=== PATIENT | male | born 1950 | race Caucasian/White ===

== ENCOUNTER 2019-01-16 12:10 | Inpatient (IN) | payer OTHER ==
[2019-01-16] MEDS ORDERED: NA CHLORIDE 0.9% 250 ML ONE ×3 (13:14→21:43)
[2019-01-16] MEDS ORDERED: METOPROLOL TAR 50 MG TAB ONE (13:14)
[2019-01-16 13:27] LABS: Absolute Lymphocytes (CBC) 0.9 K/uL (0.7-4.9); Absolute Neutrophil 4.4 K/uL (1.8-8.0); Basophils % 1.1 % (0-1.3); Eosinophils % 0.5 % (0-4.4); Hematocrit 49.1 % (39.6-49.0); Lymphocytes % 13.9 % (15.3-44.8); MPV 9.8 fL (7.6-11.3); Monocytes % 15.3 % (3.3-12.3); RBC Red Blood Cell Count 4.44 M/uL (4.33-5.43)
[2019-01-16 13:35] LABS: Protime INR 1.11
[2019-01-16 13:44] LABS: BUN Blood Urea Nitrogen 17 mg/dL (7-18); Bicarbonate 37 mmol/L (21-32); Glucose Level 173 mg/dL (74-106); Magnesium 1.4 mg/dL (1.8-2.4); NT PRO-BNP 284 pg/mL (<125); Sodium Level 130 mmol/L (136-145); Troponin (Emerg Dept Use Only) < 0.02 ng/mL (0.0-0.045)
--- NOTE | 2019-01-16 13:45 | RAD REPORT ---
EXAM DESCRIPTION: CT - Head Brain Wo Cont - 01/16/2019 1:36 pm CLINICAL HISTORY: syncope vs seizure Drowsiness, headache, seizure COMPARISON: No comparisons TECHNIQUE: All CT scans are performed using dose optimization technique as appropriate and may inclu de automated exposure control or mA/KV adjustment according to patient size. FINDINGS: No intracranial hemorrhage, hydrocephalus or extra-axial fluid collection.Moderate general ized brain atrophy.No areas of brain edema or evidence of midline shift. The paranasal sinuses and mastoids are clear. The calvarium is intact. IMPRESSION: No acute intracranial abnormality. Moderate brain atrophy.
--- NOTE | 2019-01-16 13:53 | RAD REPORT ---
EXAM DESCRIPTION: RAD - Chest Single View - 01/16/2019 1:47 pm CLINICAL HISTORY: PALPITATIONS Chest pain. COMPARISON: Chest Pa And Lat (2 Views) dated 02/06/2016; CHEST PA AND LAT 2 VIEW dated 01/13/2016 FINDINGS: Portable technique limits examination quality. The lungs are grossly clear. The heart is upper limit of normal in size. No displaced fractures. IMPRESSION: No acute intrathoracic process suspected.
[2019-01-16 13:54] LABS: Potassium 2.8 mmol/L (3.5-5.1)
[2019-01-16] MEDS ORDERED: Magnesium Sulfate 2gm IVPB 2 G/50 ML BAG IV ONE (14:14)
[2019-01-16] MEDS ORDERED: KCL 20 MEQ/100 mL IVPB 20 MEQ/100 ML BAG IV ONE (14:14)
--- NOTE | 2019-01-16 14:16 | EDPHYS ---
Physician Documentation [facility] Name: Morgan Araujo Age: 68 yrs Sex: Male : 1950 Arrival Date: 01/16/2019 Time: 12:18 Bed 13 Private MD: Silverio Calvillo S ED Physician Royer Taylor HPI: 01/16 12:56 This 68 yrs old Male presents to ER via Ambulatory with complaints of rn Weakness. 12:56 This 68 yrs old Male presents to ER via Ambulatory with complaints of rn Weakness, passing out. 12:56 The patient has experienced syncope. Onset: The symptoms/episode began/occurred 2 rn month(s) ago. Duration: The patient has had multiple episodes, that last 2 minute(s). Associated injury: The patient did not suffer any apparent associated injury. Current symptoms: Currently, the patient is not experiencing any symptoms. The patient has experienced similar episodes in the past. Reports over last 2 months has been having intermittent syncope, lasts for about 1-2 minutes, daughter states appears to shake during episodes, does not wake up confused or combative, no hx of seizures, is daily drinker, and has cut down since episodes began. Had holter monitor placed by Dr. Calvillo, and told to come to ER today for admission and cardiac w/u. . 12:56 Ran out of his metoprolol this passed week.. rn Historical: - Allergies: 12:33 No Known Allergies; ss - PMHx: 12:33 Atrial Fib; CHF; Hypertension; CAD; Myocardial infarction; ss - PSHx: 12:33 Heart stents; back surg; ss - Immunization history:: Adult Immunizations up to date. - Social history:: Smoking status: Patient/guardian denies using tobacco. - Ebola Screening: : Patient denies exposure to infectious person Patient denies travel to an Ebola-affected area in the 21 days before illness onset. - Family history:: not pertinent. - Hospitalizations: : No recent hospitalization is reported. ROS: 12:56 Constitutional: Negative for fever, chills, and weight loss, Eyes: Negative for injury, rn pain, redness, and discharge, Neck: Negative for injury, pain, and swelling, Cardiovascular: Negative for chest pain, and edema, Respiratory: Negative for shortness of breath, cough, wheezing, and pleuritic chest pain, Abdomen/GI: Negative for abdominal pain, nausea, vomiting, diarrhea, and constipation, MS/Extremity: Negative for injury and deformity, Skin: Negative for injury, rash, and discoloration, Neuro: Negative for headache, numbness, tingling, and seizure. Exam: 12:56 Constitutional: This is a well developed, well nourished patient who is awake, alert, rn and in no acute distress. Head/Face: Normocephalic, atraumatic. Eyes: Pupils equal round and reactive to light, extra-ocular motions intact. Lids and lashes normal. Conjunctiva and sclera are non-icteric and not injected. Cornea within normal limits. Periorbital areas with no swelling, redness, or edema. ENT: dry MM Cardiovascular: Irregular rhythm, tachycardic, no murmur Respiratory: Lungs have equal breath sounds bilaterally, clear to auscultation. No increased work of breathing, no retractions or nasal flaring. Abdomen/GI: soft, non-tender Skin: Warm, dry MS/ Extremity: Pulses equal, no cyanosis. Neurovascular intact. Full, normal range of motion. Equal circumference. Neuro: Awake and alert, GCS 15, oriented to person, place, time, and situation. Cranial nerves II-XII grossly intact. Motor strength 5/5 in all extremities. Sensory grossly intact. Cerebellar exam normal. Vital Signs: 12:33 BP 145 / 85; Pulse 130; Resp 17; Temp 97.7(TE); Pulse Ox 98% on R/A; Weight 81.65 kg; ss Height 5 ft. 8 in. (172.72 cm); Pain 0/10; 13:30 BP 148 / 79; Pulse 96; Resp 18; Pulse Ox 100% on R/A; hj 14:19 BP 140 / 78; Pulse 85; Resp 18; Pulse Ox 97% on R/A; hj 15:52 BP 159 / 99; Pulse 84; Resp 18; Pulse Ox 100% on R/A; hj 17:25 BP 148 / 98; Pulse 85; Resp 18; Pulse Ox 100% on R/A; hj 12:33 Body Mass Index 27.37 (81.65 kg, 172.72 cm) MDM: 12:35 Patient medically screened. rn 14:04 Differential Diagnosis: cardiac arrhythmia, idiopathic syncope, seizure, vasovagal rn episode. Data reviewed: vital signs, nurses notes, lab test result(s), EKG, radiologic studies, CT scan, plain films, and as a result, I will admit patient. Counseling: I had a detailed discussion with the patient and/or guardian regarding: the historical points, exam findings, and any diagnostic results supporting the discharge/admit diagnosis, lab results, radiology results, the need for further work-up and treatment in the hospital. Response to treatment: the patient's symptoms have mildly improved after treatment, and as a result, I will admit patient. Admission orders: after a detailed discussion of the patient's condition and case, the admit orders are written by me. Special discussion:. ED course: Pt feels better with fluids, possibly cardiogenic syncope vs electrolyte disturbances from daily drinking and diuretics. Will admit to Dr. Carroll for further care and Dr. Calvillo consult.. 01/16 12:52 Order name: Basic Metabolic Panel; Complete Time: 13:56 01/16 12:52 Order name: CBC with Diff rn 01/16 12:52 Order name: Magnesium; Complete Time: 13:56 rn 01/16 12:52 Order name: NT PRO-BNP; Complete Time: 13:56 rn 01/16 12:52 Order name: PT-INR; Complete Time: 13:55 rn 01/16 12:52 Order name: Troponin (emerg Dept Use Only); Complete Time: 13:56 rn 01/16 12:52 Order name: XRAY Chest (1 view); Complete Time: 13:55 rn 01/16 12:53 Order name: CT Head Brain wo Cont; Complete Time: 13:55 rn 01/16 14:51 Order name: Carotid Artery Bilateral EDCT 01/16 14:51 Order name: Echo with Doppler EDCT 01/16 14:51 Order name: Brain Wo Cont EDCT 01/16 12:52 Order name: EKG; Complete Time: 12:53 rn 01/16 12:52 Order name: Cardiac monitoring; Complete Time: 12:57 rn 01/16 12:52 Order name: EKG - Nurse/Tech; Complete Time: 13:52 rn 01/16 12:52 Order name: IV Saline Lock; Complete Time: 13:10 rn 01/16 12:52 Order name: Labs collected and sent; Complete Time: 13:10 rn 01/16 12:52 Order name: O2 Per Protocol; Complete Time: 12:57 rn 01/16 12:52 Order name: O2 Sat Monitoring; Complete Time: 12:57 rn 01/16 14:51 Order name: CONS Physician Consult EDMS 01/16 14:51 Order name: Heart Healthy EDMS Administered Medications: 12:52 Drug: Metoprolol TARTRATE (Lopressor) 50 mg Route: PO; hj 13:50 Follow up: Response: No adverse reaction hj 13:09 Drug: NS 0.9% 250 ml Route: IV; Rate: 1 bolus; Site: right antecubital; hj 13:51 Follow up: IV Status: Completed infusion hj 13:56 Drug: Potassium Chloride 20 mEq Route: IV; Rate: 1 calculated rate; Site: right hj antecubital; 14:12 Follow up: IV Status: Completed infusion hj 13:58 Drug: Magnesium Sulfate 2 grams Route: IVPB; Infused Over: 2 hrs; Site: right hj antecubital; 14:12 Follow up: IV Status: Completed infusion Disposition: 01/16/19 14:15 Hospitalization ordered by Kimberli Carroll for Inpatient Admission. Preliminary diagnosis are Hypokalemia, Hypomagnesemia, Dehydration, Syncope and collapse, Unspecified atrial fibrillation. - Bed requested for Telemetry/MedSurg (Inpatient). - Status is Inpatient Admission. hj - Condition is Stable. - Problem is an ongoing problem. - Symptoms have improved. UTI on Admission? No Signatures: Dispatcher [employer] EDCT Royer Taylor MD MD rn Smirch, Shelby, RN RN Alex Au RN RN Vidhya Romeo RN RN df Corrections: (The following items were deleted from the chart) 13:02 12:56 Constitutional: This is a well developed, well nourished patient who is awake, rn alert, and in no acute distress. Head/Face: Normocephalic, atraumatic. Eyes: Pupils equal round and reactive to light, extra-ocular motions intact. Lids and lashes normal. Conjunctiva and sclera are non-icteric and not injected. Cornea within normal limits. Periorbital areas with no swelling, redness, or edema. ENT: dry MM Cardiovascular: Irregular rhythm, tachycardic, no murmur Respiratory: Lungs have equal breath sounds bilaterally, clear to auscultation. No increased work of breathing, no retractions or nasal flaring. Abdomen/GI: soft, non-tender MS/ Extremity: Pulses equal, no cyanosis. Neurovascular intact. Full, normal range of motion. Equal circumference. Neuro: Awake and alert, GCS 15, oriented to person, place, time, and situation. Cranial nerves II-XII grossly intact. Motor strength 5/5 in all extremities. Sensory grossly intact. Cerebellar exam normal. rn 16:38 14:15 Hospitalization Ordered by Kimberli Carroll MD for Inpatient Admission. Preliminary df diagnosis is Hypokalemia; Hypomagnesemia; Dehydration; Syncope and collapse; Unspecified atrial fibrillation. Bed requested for Telemetry/MedSurg (Inpatient). Status is Inpatient Admission. Condition is Stable. Problem is an ongoing problem. Symptoms have improved. UTI on Admission? No. rn 16:43 16:38 01/16/2019 14:15 Hospitalization Ordered by Kimberli Carroll MD for Inpatient df Admission. Preliminary diagnosis is Hypokalemia; Hypomagnesemia; Dehydration; Syncope and collapse; Unspecified atrial fibrillation. Bed requested for Telemetry/MedSurg (Inpatient). Status is Inpatient Admission. Condition is Stable. Problem is an ongoing problem. Symptoms have improved. UTI on Admission? No. df 17:47 16:43 01/16/2019 14:15 Hospitalization Ordered by Kimberli Carroll MD for Inpatient hj Admission. Preliminary diagnosis is Hypokalemia; Hypomagnesemia; Dehydration; Syncope and collapse; Unspecified atrial fibrillation. Bed requested for Telemetry/MedSurg (Inpatient). Status is Inpatient Admission. Condition is Stable. Problem is an ongoing problem. Symptoms have improved. UTI on Admission? No. df
--- NOTE | 2019-01-16 14:16 | ER ---
Nurse's Notes [facility] Name: Morgan Araujo Age: 68 yrs Sex: Male : 1950 Arrival Date: 01/16/2019 Time: 12:18 Bed 13 Private MD: Silverio Calvillo S Diagnosis: Hypokalemia;Hypomagnesemia;Dehydration;Syncope and collapse;Unspecified atrial fibrillation Presentation: 01/16 12:30 Presenting complaint: daughter reports episodes over the past 2 months that have been ss occurring daily. Episodes are described as brief convulsions followed by minutes of unresponsiveness. Transition of care: patient was not received from another setting of care. Onset of symptoms is unknown. Risk Assessment: Do you want to hurt yourself or someone else? Patient reports no desire to harm self or others. Initial Sepsis Screen: Does the patient meet any 2 criteria? No. Patient's initial sepsis screen is negative. Does the patient have a suspected source of infection? No. Patient's initial sepsis screen is negative. Care prior to arrival: None. 12:30 Method Of Arrival: Ambulatory ss 12:30 Acuity: EARNEST 3 ss Triage Assessment: 12:30 General: Appears in no apparent distress. uncomfortable, Behavior is calm, cooperative, hj appropriate for age. Pain: Denies pain. 12:30 EENT: No signs and/or symptoms were reported regarding the EENT system. Neuro: Level of hj Consciousness is awake, alert, obeys commands, Oriented to person, place, time, situation, Appropriate for age. Cardiovascular: Capillary refill < 3 seconds Patient's skin is warm and dry. Respiratory: Airway is patent Respiratory effort is even, unlabored, Respiratory pattern is regular, symmetrical. GI: No signs and/or symptoms were reported involving the gastrointestinal system. : No signs and/or symptoms were reported regarding the genitourinary system. Derm: No signs and/or symptoms reported regarding the dermatologic system. Musculoskeletal: Reports. Historical: - Allergies: 12:33 No Known Allergies; ss - PMHx: 12:33 Atrial Fib; CHF; Hypertension; CAD; Myocardial infarction; ss - PSHx: 12:33 Heart stents; back surg; ss - Immunization history:: Adult Immunizations up to date. - Social history:: Smoking status: Patient/guardian denies using tobacco. - Ebola Screening: : Patient denies exposure to infectious person Patient denies travel to an Ebola-affected area in the 21 days before illness onset. - Family history:: not pertinent. - Hospitalizations: : No recent hospitalization is reported. Screenin:30 Abuse screen: Denies threats or abuse. Denies injuries from another. Nutritional hj screening: No deficits noted. Tuberculosis screening: No symptoms or risk factors identified. Fall Risk None identified. Assessment: 12:30 Reassessment: see triage for assessment;. hj 13:30 Reassessment: Patient and/or family updated on plan of care and expected duration. Pain hj level reassessed. Patient is alert, oriented x 3, equal unlabored respirations, skin warm/dry/pink. awaiting results and POC;. 14:18 Reassessment: Patient and/or family updated on plan of care and expected duration. Pain hj level reassessed. Patient is alert, oriented x 3, equal unlabored respirations, skin warm/dry/pink. awaiting room placement;. 15:51 Reassessment: Patient and/or family updated on plan of care and expected duration. Pain hj level reassessed. Patient is alert, oriented x 3, equal unlabored respirations, skin warm/dry/pink. pt wheeled to CT;. Vital Signs: 12:33 BP 145 / 85; Pulse 130; Resp 17; Temp 97.7(TE); Pulse Ox 98% on R/A; Weight 81.65 kg; ss Height 5 ft. 8 in. (172.72 cm); Pain 0/10; 13:30 BP 148 / 79; Pulse 96; Resp 18; Pulse Ox 100% on R/A; hj 14:19 BP 140 / 78; Pulse 85; Resp 18; Pulse Ox 97% on R/A; hj 15:52 BP 159 / 99; Pulse 84; Resp 18; Pulse Ox 100% on R/A; hj 17:25 BP 148 / 98; Pulse 85; Resp 18; Pulse Ox 100% on R/A; hj 12:33 Body Mass Index 27.37 (81.65 kg, 172.72 cm) ED Course: 12:18 Patient arrived in ED. mr 12:19 Justen Hickey MD is Private Physician. mr 12:20 Silverio Calvillo MD is Private Physician. mr 12:33 Triage completed. ss 12:33 Arm band placed on right wrist. ss 12:33 Patient has correct armband on for positive identification. Placed in gown. Bed in low hj position. Call light in reach. Side rails up X 1. Adult w/ patient. 12:35 Royer Taylor MD is Attending Physician. rn 12:35 lAex Au RN is Primary Nurse. hj 13:04 EKG done, by electrical design technician. reviewed by Royer Taylor MD. at1 13:19 Inserted saline lock: 20 gauge in right forearm, using aseptic technique. pc1 13:[address] via stretcher. sj 13:31 CT completed. Patient tolerated procedure well. Patient moved back from CT. sj 13:35 Radiology exam delayed due to PT NOT IN ED ROOM ASSIGNED WHEN X RAY ATTEMPTED. sw 13:35 CT Head Brain wo Cont In Process Unspecified. EDMS 13:47 X-ray completed. Portable x-ray completed in exam room. Patient tolerated procedure mh1 well. 13:48 XRAY Chest (1 view) In Process Unspecified. EDMS 14:06 Kimberli Carroll MD is Hospitalizing Provider. rn 17:26 No provider procedures requiring assistance completed. Patient admitted, IV remains in hj place. intact. Administered Medications: 12:52 Drug: Metoprolol TARTRATE (Lopressor) 50 mg Route: PO; hj 13:50 Follow up: Response: No adverse reaction hj 13:09 Drug: NS 0.9% 250 ml Route: IV; Rate: 1 bolus; Site: right antecubital; hj 13:51 Follow up: IV Status: Completed infusion hj 13:56 Drug: Potassium Chloride 20 mEq Route: IV; Rate: 1 calculated rate; Site: right hj antecubital; 14:12 Follow up: IV Status: Completed infusion hj 13:58 Drug: Magnesium Sulfate 2 grams Route: IVPB; Infused Over: 2 hrs; Site: right hj antecubital; 14:12 Follow up: IV Status: Completed infusion hj Outcome: 14:15 Decision to Hospitalize by Provider. rn 17:26 Admitted to Tele accompanied by nurse, family with patient, via wheelchair, room 406, hj with chart, Report called to DANO Philippe 17:26 Condition: stable 17:26 Instructed on the need for admit, Demonstrated understanding of instructions. 17:47 Patient left the ED. hj Signatures: Dispatcher [facility] Martha 1 Yasmin Kyle Roman, MD MD rn Smirch, DANO Iyer RN Ashleigh Blake, projects manager EKG [facility]1 Elayne Florse Henry, RN RN Gregg Pablo pc1 Corrections: (The following items were deleted from the chart) 12:42 12:33 BP 145 / 85; Pulse 98bpm; Resp 17bpm; Pulse Ox 98% RA; Temp 97.7F Temporal; 81.65 ss kg; Height 5 ft. 8 in.; BMI: 27.3; Pain 0/10; ss
[2019-01-16] MEDS ORDERED: LORAZEPAM 1 MG TABLET PO ONE (15:16)
--- NOTE | 2019-01-16 15:16 | EKG ---
Test Date: 2019-01-16 Test Time: 12:42:58 Ambulance Paramedic: EMELY MEASUREMENT RESULTS: Intervals: Rate: 124 SD: QRSD: 86 QT: 324 QTc: 465 [place]: P: SD: QRS: 20 T: 237 INTERPRETIVE STATEMENTS: Atrial fibrillation with rapid ventricular response Septal infarct, age undetermined Possible Inferior infarct, age undetermined Marked ST abnormality, possible lateral subendocardial injury Abnormal ECG Compared to ECG 01/13/2016 12:51:43 ST (T wave) deviation now present Myocardial infarct finding still present Electronically Signed On 01-16-19 15:14:38 CDT by Allan Bowen
[2019-01-16] MEDS ORDERED: LORazepam 2 MG/ML VIAL ONE (15:49)
--- NOTE | 2019-01-16 16:28 | RAD REPORT ---
EXAM DESCRIPTION: US - CP - 01/16/2019 4:13 pm CLINICAL HISTORY: Syncope COMPARISON: None. TECHNIQUE: Real-time sonographic evaluation of both carotid systems was performed. Nevarez scale and Do ppler interrogation were performed with waveform tracing bilaterally. FINDINGS: Normal high resistance waveforms are noted in both external carotid arteries. The common c arotid arteries and internal carotid arteries show normal low resistance waveforms. Significant calcified plaquing changes are present in the right carotid bulb. Mild luminal narrowing is seen. Left bulb and left external carotid plaquing changes are present to a lesser degree. Right i nternal carotid artery peak systolic velocity was 134 cm/second. The common carotid artery velocity w as low at 37 cm/second creating a 3.6 ICA/ CCA ratio. The ratio is elevated due to the very low commo n carotid artery velocity. Left common carotid artery velocity was relatively low at 48 cm/seconds. L eft ICA peak velocity was 94 cm/second creating a 1.9 ICA/ CCA ratio. Antegrade flow seen in both vertebral arteries. Velocity values and ratios were recorded and are retained in the patient's imaging records. IMPRESSION: Patient has abnormal velocity and abnormal ratio values with visual inspection showing d isease of less significance. The low common carotid artery velocity values could indicate proximal common carotid stenosis not vis ualized on this examination. Cervical vasculature CT angiography or MR angiography may be helpful for further characterization.
--- NOTE | 2019-01-16 16:29 | P.HP ---
Certification for Inpatient Patient admitted to: Observation With expected LOS: <2 Midnights Patient will require the following post-hospital care: None Practitioner: I am a practitioner with admitting privileges, knowledge of patient current condition, hospital course, and medical plan of care. Services: Services provided to patient in accordance with Admission requirements found in Title 42 Section 412.3 of the Code of Federal Regulations Patient History Date of Service: 01/16/19 Primary Care Provider: Dr Calvillo - PCP and cardiology Reason for admission: Syncope History of Present Illness: 67 y/o M with pmhx of afib, CHF, CAD and Alcohol abuse who presents to the ED after having syncopal episode at the house. Pt has been having this episodes for over a month now and has been seen bu cardiology recently who placed pt on Holter monitor. Pt however only wore it for 1 hrs and then threw it away as it was making noise. This was last week. Pt then had another syncopal episode and was told to come to ER for further workup. Pt does drink alcohol everynight. Allergies No Known Allergies Allergy (Verified 06/04/17 09:58) Home Medications: Aspirin/Calcium Carbonate/Mag [Aspirin Buffered 325 mg Tab] 325 mg PO DAILY 05/23 Atorvastatin Calcium [Lipitor] 80 mg PO DAILY 01/13/16 Nitroglycerin [Nitrostat] 0.4 mg SL SEECOM PRN 01/13/16 Omeprazole 40 mg PO DAILY 01/13/16 Amlodipine [Norvasc*] 5 mg PO DAILY #30 tab 01/16/16 Apixaban [Eliquis *] 5 mg PO BID #60 tablet 01/16/16 Fluticasone [Flonase 50MCG Nasal [place]*] 2 sprays SANIYA DAILY #01 btl 01/16/16 Metoprolol Succinate [Toprol Xl*] 200 mg PO DAILY #30 tab 01/16/16 Thiamine HCl 100 mg PO DAILY #100 tablet 01/16/16 chlordiazePOXIDE HCl [Librium*] 10 mg PO TID #40 cap 01/16/16 - Past Medical/Surgical History Diabetic: No -: heart attack -: AFIB -: 2 stents placed -: hernia repair -: knee surgery -: back surgery - Family History Mother -: Cancer Father -: Cancer - Social History Smoking Status: Unknown if ever smoked Counseled patient to stop smoking for: more than 10 minutes Smoking therapy provided: Yes Patient receptive to therapy: No Alcohol use: Yes CD- Drugs: Yes Caffeine use: No Place of Residence: Home Review of Systems 10-point ROS is otherwise unremarkable Physical Examination - Physical Exam General: Alert, In no apparent distress HEENT: Atraumatic, PERRLA, Mucous membr. moist/pink, EOMI, Sclerae nonicteric Neck: Supple, 2+ carotid pulse no bruit, No LAD, Without JVD or thyroid abnormality Respiratory: Clear to auscultation bilaterally, Normal air movement Cardiovascular: Regular rate/rhythm, Normal S1 S2 Gastrointestinal: Normal bowel sounds, No tenderness Musculoskeletal: No tenderness Integumentary: No rashes Neurological: Normal speech, Normal tone Lymphatics: No axilla or inguinal lymphadenopathy - Studies Laboratory Data (last 24 hrs) 01/16/19 13:05: PT 13.0 H, INR 1.11 01/16/19 13:05: WBC 6.4, Hgb 17.1, Hct 49.1 H, Plt Count 210 01/16/19 13:05: Sodium 130 L, Potassium 2.8 L*, BUN 17, Creatinine 1.09, Glucose 173 H, Magnesium 1.4 L* Assessment and Plan - Problems (Diagnosis) (1) Syncopal episodes Current Visit: Yes Status: Acute Plan: Syncopal Episodes most likely 2.2 to Electrolyte abnormality vs cardiac vs alcohol abuse -Head CT in the ED negative for Acute abnormality -Will order MRI, ECHO, Carotid Doppler -Will Consult Cardiology for further workup -Will get PT consult -Will monitor closely Qualifiers: Syncope type: unspecified Qualified Code(s): R55 - Syncope and collapse (2) Afib Current Visit: Yes Status: Chronic Plan: Chronic Afib -Will restart on Home medication Qualifiers: Atrial fibrillation type: chronic Qualified Code(s): I48.2 - Chronic atrial fibrillation (3) CHF (congestive heart failure) Current Visit: Yes Status: Chronic Plan: Diastolic CHF -ECHO in 2016 with diastolic Dysfunction with EF of 63% -Will repeat ECHO at this time Qualifiers: Heart failure type: diastolic Heart failure chronicity: chronic Qualified Code(s): I50.32 - Chronic diastolic (congestive) heart failure (4) CAD (coronary artery disease) Current Visit: Yes Status: Chronic Qualifiers: Coronary Disease-Associated Artery/Lesion type: [place] artery [place] vs. transplanted heart: [place] heart Associated angina: without angina Qualified Code(s): I25.10 - Atherosclerotic heart disease of [place] coronary artery without angina pectoris (5) Alcohol abuse Current Visit: Yes Status: Chronic Plan: Will place on Alcohol CIWA protocol (6) Electrolyte abnormality Current Visit: Yes Status: Acute Plan: Hypomg, Hypo K and ca -Will replace -Most likely 2.2 to Alcohol abuse Discharge Plan: Home Plan to discharge in: 72 Hours - Advance Directives Does patient have a Living Will: No Does patient have a Durable POA for Healthcare: No - Code Status/Comfort Care Code Status Assessed: Yes Critical Care: No
[2019-01-16] MEDS ORDERED: LORazepam 2 MG/ML VIAL IV ONE (16:34)
--- NOTE | 2019-01-16 17:24 | RAD REPORT ---
EXAM DESCRIPTION: MRI - Brain Wo Cont - 01/16/2019 5:11 pm CLINICAL HISTORY: Syncope seizure like activity COMPARISON: CT head same date TECHNIQUE: Sagittal T1-weighted images were obtained along with axial PD, heavily T2-weighted and T2 -FLAIR images. Axial DWI and ADC mapping sequences were also obtained along with coronal heavily T2-w eighted images. FINDINGS: No intracranial hemorrhage, mass or acute infarction. There is no edema or shift of midlin e structures. Mild atrophy and minimal chronic ischemic changes are present. Ventricles are in propor tion to any volume loss. [place]-matter/white matter junction is preserved. Signal voids are seen as a n ormal finding in the major intracranial vessels. No globe or orbital content abnormality. No sella mass and no tonsillar ectopia. Mastoid air cells and paranasal sinuses are clear. IMPRESSION: Negative non-contrast MRI of the Brain for acute finding Mild atrophy and minimal chronic ischemic change.
[2019-01-16 18:41] VITALS: BMI 27.3
[2019-01-16 19:44] LABS: Urine Appearance CLEAR; Urine Bilirubin NEGATIVE (NEG); Urine Blood NEGATIVE (NEG); Urine Color DK YELLOW; Urine Glucose NEGATIVE (NEG); Urine Protein NEGATIVE (NEG); Urine Specific Gravity 1.015 (1.005-1.030); Urine pH 7.5 (5.0-7.0)
[2019-01-16] MEDS ORDERED: KCL 20 MEQ/100 mL IVPB 20 MEQ/100 ML BAG IV SCH (20:00)
[2019-01-16 20:13] LABS: Blood Morphology Comment NOTED (NOT SEEN); Platelet Estimate ADEQ; Urine White Blood Cell Casts OK
[2019-01-16 20:14] LABS: Macrocytosis 1+
[2019-01-16 20:58] LABS: Urine Bacteria NONE SEEN /HPF (NONE SEEN); Urine RBC <5 /HPF (NONE SEEN)
[2019-01-16 20:59] LABS: Urine Culture Reflex Order NOT NEEDED; Urine Mucus 1+ /HPF (NONE SEEN)
[2019-01-16] MEDS: METOPROLOL TAR 50 MG TAB PO SCH (21:37)
[2019-01-16] MEDS: TEMAZEPAM 15 MG CAP PO PRN (21:37)
[2019-01-16] MEDS: chlordiazePOXIDE HCl 5 MG CAP PO SCH (21:37)
[2019-01-16] MEDS: ENOXAPARIN 80 MG/0.8 ML SQ SCH (21:38)
[2019-01-17] MEDS: chlordiazePOXIDE HCl 5 MG CAP PO SCH ×5 (00:25→23:40)
--- NOTE | 2019-01-17 02:19 | CON ---
History Of Present Illness: Mr. Araujo has been having syncopal spells and the family came to the [facility] with a lot of encouragement or something stronger than that by his family to get him here. Hi s first syncopal spell was something like 2 months ago. He has had numerous, too many to count. He saw Dr. Calvillo. Dr. Calvillo put a monitor on him. The patient was frustrated, could not make it wo rk, cried, pulled it often, and apparently threw it in the trash. The patient's syncopal spells all occur when he is standing, none have occurred when he is sitting. He has not had any tongue biting o r bladder or bowel incontinence. There is no rigidity. Usually, he wakes up within a minute. His l ongest spell was about 5 minutes. When he awakens, he is not confused or disoriented. He has not vera d any traumatic brain injury. He is a very heavy alcohol user, although he only admits to drinking 3 drinks per day. We do not know what his outpatient medications are. Since he has been here in the hospital, the carotid ultrasounds does not reveal any significant stenosis, although they were concer opal that the proximal common carotid stenosis close to the aorta might be involved, but that is a joaquin ce that was not imaged. A CAT scan of his head revealed no intracranial abnormality, although the br ain atrophy was commented upon. His electrocardiogram shows atrial fib, rapid ventricular response, septal infarct, possible inferior infarct, and marked ST abnormality. Social History: He is an alcohol and tobacco user. Past Medical History: Never had myocardial infarction or stroke or diabetes. Physical Examination: General: He is alert, oriented, and pleasant. He is not in distress. He is 5 feet and 8 inches and 81 kg, mildly overweight. Vital Signs: Blood pressure 145/80, heart rate 130, irregularly irregular. Lungs: Clear. Extremities: Reveal discoloration, trace edema. Distal pulses palpable but diminished. Impression: Mr. Araujo has atrial fib. He may be syncopal because his atrial fib goes so rapidly. He may be syncopal because there are dramatic pauses, I am not sure. Most likely his monitor was goi ng up and alarming him because he had an arrhythmia that he did not try to get treated. When he saw Dr. Calvillo a week ago, Dr. Calvillo recommended he be placed in the hospital and he refused and now joseph valdes is here, so what we need to do is get his heart rate under control and consider long-term anticoagu lation for him. At this point, I would not be willing to do a cardioversion or give him an antiarrhy thmic drug. We should just slow his heart rate and anticoagulate him here in the hospital. JAZMIN Voice ID: [id number] Report ID: [id number]
[2019-01-17 04:17] LABS: Absolute Lymphocytes (CBC) 1.5 K/uL (0.7-4.9); Absolute Monocytes 1.3 K/uL (0.1-1.3); Absolute Neutrophil 4.6 K/uL (1.8-8.0); Basophils % 0.8 % (0-1.3); Eosinophils % 1.9 % (0-4.4); Hematocrit 44.4 % (39.6-49.0); Lymphocytes % 19.8 % (15.3-44.8); MPV 9.4 fL (7.6-11.3); Monocytes % 17.1 % (3.3-12.3); RBC Red Blood Cell Count 3.97 M/uL (4.33-5.43)
[2019-01-17 05:13] LABS: Albumin 3.4 g/dL (3.4-5.0); Folic Acid, (Folate) 3.5 ng/mL (3.1-17.5); Magnesium 1.8 mg/dL (1.8-2.4); Phosphorus 2.6 mg/dL (2.5-4.9); Potassium 3.3 mmol/L (3.5-5.1); Protein, Total 7.4 g/dL (6.4-8.2)
[2019-01-17] MEDS ORDERED: MAGNESIUM SULFATE 1 gm IVPB 1 GM/100 ML BAG IV ONE (05:25)
[2019-01-17] MEDS ORDERED: POTASSIUM 25 MEQ EFFERV TAB PO ONE (05:25)
[2019-01-17] MEDS: FOLIC ACID 1 MG, MULTIVITAMINS INJ 10 ML, THIAMINE HCL 100 MG in NA CHLORIDE 0.9% 1,000 ML IV SCH (08:16)
[2019-01-17] MEDS: ENOXAPARIN 80 MG/0.8 ML SQ SCH ×2 (08:16→20:44)
[2019-01-17] MEDS: METOPROLOL TAR 50 MG TAB PO SCH ×2 (08:20→20:43)
[2019-01-17] MEDS ORDERED: CLOPIDOGREL 75 MG TABLET PO SCH (09:00)
[2019-01-17] MEDS ORDERED: TORSEMIDE 20 MG TAB PO SCH (09:00)
[2019-01-17] MEDS ORDERED: HOME MED 1 EA UNK (Metoprolol Succinate [Toprol Xl] 200 MG) PO SCH (09:00)
[2019-01-17] MEDS ORDERED: LORazepam 2 MG/ML VIAL IV ONE (12:00)
[2019-01-17] MEDS ORDERED: MAGNESIUM HYDROXIDE 8% 30 ML PO PRN (13:12)
--- NOTE | 2019-01-17 14:16 | RAD REPORT ---
EXAM DESCRIPTION: MRI - MRA Neck W/Wo Cont - 01/17/2019 1:34 pm CLINICAL HISTORY: Syncope, carotid stenosis COMPARISON: None. TECHNIQUE: Axial and coronal 3D [id number] image acquisition was performed. 3D rotational images were generated with source and reconstruction images reviewed. Horizontal and vertical axis rotation al views generated using MIP protocol. A 16 milliliter MultiHance contrast volume was utilized. FINDINGS: Aortic arch is 3 vessel configuration. No innominate artery or left common carotid artery origins stenosis identified. Origin of the left subclavian artery is obscured from view. Vertebral ar chalo origins show no stenosis. No stenosis or dissection of the left common carotid artery or right c ommon carotid artery. Short-segment stenosis of the left external carotid artery is seen less than 50 %. External stenoses are not clinically significant. Patient does have approximately 50-60% short-segment stenosis at the right bulb ICA junction. More di stally there is no carotid stenosis or dissection. Left vertebral artery is slightly dominant. No dissection, stenosis or acute vertebral artery finding . IMPRESSION: Approximately 50-60% stenosis at the right bulb ICA junction. No other significant findi ng in the right-sided carotid vasculature. No left carotid stenosis or significant finding. The abnormal common carotid velocities on the recent ultrasound are likely technical issues.
[2019-01-17 15:36] LABS: Potassium 3.6 mmol/L (3.5-5.1)
--- NOTE | 2019-01-17 16:58 | P.PN ---
Subjective Date of Service: 01/17/19 Primary Care Provider: Dr Calvillo - PCP and cardiology Chief Complaint: Syncope Pt seen and examined bedside. Chart Reviewed. Case DW with cardiology and Urology. Pt overnight had some Hematuria. No other complains to offer at this time. Review of Systems 10-point ROS is otherwise unremarkable Physical Examination - Vital Signs Temperature: 97.6 F Blood Pressure: 130/89 Pulse: 90 Respirations: 18 Pulse Ox (%): 98 - Physical Exam General: Alert, In no apparent distress HEENT: Atraumatic, PERRLA, EOMI Neck: Supple, JVD not distended Respiratory: Clear to auscultation bilaterally, Normal air movement Cardiovascular: Regular rate/rhythm, Normal S1 S2 Gastrointestinal: Normal bowel sounds, No tenderness Musculoskeletal: No tenderness Integumentary: No rashes Neurological: Normal speech, Normal tone, Normal affect Lymphatics: No axilla or inguinal lymphadenopathy - Studies Laboratory Data (last 24 hrs) 01/16/19 13:05: WBC 6.4, Hgb 17.1, Hct 49.1 H, Plt Count 210 Medications List Reviewed: Yes Assessment And Plan - Current Problems (Diagnosis) (1) Hematuria Current Visit: Yes Status: Acute Plan: Most Likely 2.2 to Anticoagulation vs DAVID -UA pending at this time -Urology consulted. Appreciated Reccs -Reccs CBI Qualifiers: Hematuria type: gross Qualified Code(s): R31.0 - Gross hematuria (2) Syncopal episodes Current Visit: Yes Status: Acute Plan: Syncopal Episodes most likely 2.2 to Electrolyte abnormality vs cardiac vs alcohol abuse -Head CT in the ED negative for Acute abnormality -MRI and Carotid Doppler Negative for CVA -ECHO pending -Cardiology Consulted. Appreciated Reccs -Working with PT at this time. Qualifiers: Syncope type: unspecified Qualified Code(s): R55 - Syncope and collapse (3) Afib Current Visit: Yes Status: Chronic Plan: Aflutter 2.2 to Alcohol abuse vs Electrolyte Abnormality -Started on BB (Metoprolol 50mg BID) -Started on WB lovenox -Hold other anticoagulation due to Hematuria at this time Qualifiers: Atrial fibrillation type: chronic Qualified Code(s): I48.2 - Chronic atrial fibrillation (4) CHF (congestive heart failure) Current Visit: Yes Status: Chronic Plan: Diastolic CHF -ECHO in 2016 with diastolic Dysfunction with EF of 63% -ECHO now pending Qualifiers: Heart failure type: diastolic Heart failure chronicity: chronic Qualified Code(s): I50.32 - Chronic diastolic (congestive) heart failure (5) CAD (coronary artery disease) Current Visit: Yes Status: Chronic Qualifiers: Coronary Disease-Associated Artery/Lesion type: [place] artery [place] vs. transplanted heart: [place] heart Associated angina: without angina Qualified Code(s): I25.10 - Atherosclerotic heart disease of [place] coronary artery without angina pectoris (6) Alcohol abuse Current Visit: Yes Status: Chronic Plan: On CIWA protocol -librium PRN -Banana Bag (7) Electrolyte abnormality Current Visit: Yes Status: Acute Plan: Hypomg, Hypo K and ca -Will replace -Most likely 2.2 to Alcohol abuse Discharge Plan: Other Plan to discharge in: Greater than 2 days - Code Status/Comfort Care Code Status Assessed: Yes Critical Care: No
[2019-01-17] MEDS ORDERED: POTASSIUM CL SA 10 MEQ TAB PO ONE (17:00)
--- NOTE | 2019-01-17 17:25 | ECHO ---
HEIGHT: 5 ft 8 in WEIGHT: 180 lb 0 oz DATE OF STUDY: 01/17/[address]: Kimberli Carroll MD 2-DIMENSIONAL: YES M.MODE: YES DOPPLER: YES COLOR FLOW: YES TDS: PORTABLE: DEFINITY: BUBBLE STUDY: DIAGNOSIS: SYNCOPE CARDIAC HISTORY: CATHERIZATION: YES SURGERY: NO PROSTHETIC VALVE: NO PACEMAKER: NO MEASUREMENTS (cm) DIASTOLIC (NORMALS) SYSTOLIC (NORMALS) IVSd 1.2 (0.6-1.2) LA Diam 4.4 (1.9-4.0) LVEF 68% LVIDd 3.8 (3.5-5.7) LVIDs 2.4 (2.0-3.5) %FS 38% LVPWd 1.2 (0.6-1.2) Ao Diam 3.0 (2.0-3.7) 2 DIMENSIONAL ASSESSMENT: RIGHT ATRIUM: NORMAL LEFT ATRIUM: DILATED RIGHT VENTRICLE: NORMAL LEFT VENTRICLE: NORMAL TRICUSPID VALVE: NORMAL MITRAL VALVE: NORMAL PULMONIC VALVE: NORMAL AORTIC VALVE: NORMAL PERICARDIAL EFFUSION: NONE AORTIC ROOT: NORMAL LEFT VENTRICULAR WALL MOTION: NORMAL DOPPLER/COLOR FLOW: NORMAL COMMENTS: TECHNICALLY DIFFICULT STUDY. DILATED LEFT ATRIUM. NORMAL LEFT VENTRICULAR EJECTION FRACTION. TECHNOLOGIST: KATEY DE LA FUENTE
[2019-01-17 18:59] LABS: Urine Appearance CLEAR; Urine Bilirubin NEGATIVE (NEG); Urine Blood NEGATIVE (NEG); Urine Color YELLOW; Urine Glucose NEGATIVE (NEG); Urine Protein NEGATIVE (NEG); Urine Specific Gravity 1.015 (1.005-1.030)
--- NOTE | 2019-01-17 19:11 | CON ---
History Of Present Illness: A 68-year-old alcoholic abuser man who drinks himself to sleep every night. Daughter says he has been drinking since he was in his 20s. The daughter does not know how many drinks he takes, but she says a lot. He has a past medical history of atrial fibrillation, CHF, coronary artery disease, and alcoholic abuse, who presented to the ER after having a syncopal episode at the house. He has been having episodes for over a month. He came in and had Lovenox added to his Plavix and then had some initial gross hematuria. The Lovenox and Plavix were held. The urine cleared up. He does have some lower urinary tract symptomatology with nocturia, depends on how many alcohol drinks he takes that night, along with some frequency during the day and decrease in force of stream. He does not remember the last time he had a PSA. He believes it was a year ago, but the daughter does not really believe he has that good a memory to remember, so I ordered 1 today. I believe since the Lovenox, which was for prophylaxis, we can go ahead and start him back on his Plavix, that should anticoagulate him, and we will see how he does with that. If he definitely needs the anticoagulation, then he may need a 3-way Ferrell catheter placed for irrigation. Most of the bleeding sounds like it is coming from the prostatic area. Allergies: NO KNOWN DRUG ALLERGIES. Home Medications: Aspirin, Plavix, atorvastatin, nitroglycerin, omeprazole, Norvasc, Eliquis, Flonase, metoprolol, thiamine, Librium. Past Medical History: No diabetes. Positive for heart attack. Positive for atrial fibrillation. Two stents placed. Knee surgery. Back surgery. Family History: Mother had cancer. Father had cancer. Social History: Smoking status: Does not smoke. He does drink a lot. Caffeine use denied. Resides at home. Review of Systems: A 10-point review of systems otherwise unremarkable. Physical Examination: General: The patient was afebrile. Stable. No acute distress. Has very long hair. He is alert and oriented, in no apparent distress. Daughter is present in the room. Vital Signs: Temperature 97.8, 82, 16, 105/71. Respiratory: Clear to auscultation bilaterally. Cardiovascular: S1, S2. Gastrointestinal: Normal bowel sounds. No tenderness. Rectal: The prostate was benign-feeling, 30-40 g prostate. : Testicles descended, nontender. Phallus normal. No lesions. Skin: No rashes. Neurologic: Normal speech, normal tone. Lymphatics: No lymphadenopathy. Laboratory Data: Studies done PT/INR normal. White blood cell count, WBC 6.4, H and H of 17 and 49, platelets 210. Electrolytes sodium 130. Potassium was 2.8, subsequently being corrected to 3.3. BUN 17, creatinine 1.09, glucose 173 , magnesium 1.4. Assessment: 1. Patient with syncopal episodes, unclear what the cause is. He is getting MRI, echo, and other studies done. He did have a brain MRI showing negative noncontrasted MRI of the brain for any acute finding. Also had a carotid artery ultrasound that showed abnormal velocities and abnormal ratio values with visual inspection showing no etiology. Values could indicate proximal common carotid artery stenosis that was not visualized in the exam, and that they recommend CT angiography or MRI angiography for further characterization. He is pending a neck MRA today. 2. As far as the hematuria is concerned, most likely it is prostatic, possible benign prostatic hyperplasia. We will resume his p.o. anticoagulation. Hold the Lovenox. Check a prostate specific antigen. 3. Atrial fibrillation. Restarted on anticoagulation. 4. Congestive heart failure with an ejection fraction of 63%. 5. Coronary artery disease, stable. 6. Alcohol abuse. The patient needs to work on this area. He is getting multivitamins and thiamine currently. Electrolyte abnormalities have been corrected. 7. PSA and Urinalysis are still pending. WILL/GRIFFIN Voice ID: [id number] Report ID: [id number] LISET
[2019-01-17 19:27] LABS: Urine Bacteria NONE SEEN /HPF (NONE SEEN); Urine Culture Reflex Order NOT NEEDED; Urine RBC <5 /HPF (NONE SEEN)
[2019-01-17] MEDS: TEMAZEPAM 15 MG CAP PO PRN (20:41)
[2019-01-17] MEDS ORDERED: chlordiazePOXIDE HCl 5 MG CAP PO SCH ×2 (21:04→21:13)
[2019-01-18 04:16] LABS: Absolute Lymphocytes (CBC) 1.6 K/uL (0.7-4.9); Absolute Monocytes 1.2 K/uL (0.1-1.3); Absolute Neutrophil 4.2 K/uL (1.8-8.0); Basophils % 1.3 % (0-1.3); Eosinophils % 2.4 % (0-4.4); Hematocrit 43.1 % (39.6-49.0); Lymphocytes % 21.7 % (15.3-44.8); MPV 9.7 fL (7.6-11.3); Monocytes % 16.9 % (3.3-12.3); RBC Red Blood Cell Count 3.87 M/uL (4.33-5.43)
[2019-01-18 04:32] LABS: Bilirubin Total 1.3 mg/dL (0.2-1.0); Magnesium 1.9 mg/dL (1.8-2.4); Phosphorus 2.4 mg/dL (2.5-4.9); Protein, Total 6.6 g/dL (6.4-8.2)
[2019-01-18] MEDS ORDERED: POTASSIUM CL SA 10 MEQ TAB PO ONE ×3 (04:37→21:00)
[2019-01-18] MEDS: chlordiazePOXIDE HCl 5 MG CAP PO SCH ×3 (05:18→17:43)
[2019-01-18] MEDS: POTASS/SODIUM PHOSPHATE 1 PKT POWD.PACK PO SCH ×3 (05:18→08:30)
[2019-01-18] MEDS ORDERED: CLOPIDOGREL 75 MG TABLET PO SCH (09:00)
[2019-01-18] MEDS: ENOXAPARIN 80 MG/0.8 ML SQ SCH (09:00)
[2019-01-18] MEDS: FOLIC ACID 1 MG, MULTIVITAMINS INJ 10 ML, THIAMINE HCL 100 MG in NA CHLORIDE 0.9% 1,000 ML IV SCH (09:33)
[2019-01-18] MEDS: METOPROLOL TAR 50 MG TAB PO SCH ×2 (09:34→20:23)
--- NOTE | 2019-01-18 12:02 | PN ---
Mr. Araujo's blood pressure and heart rate are well controlled on his present medications. Since he has had correction of his severe and numerous metabolic abnormalities, he has had no further symptoms . In my opinion, his symptoms were all due to severe alcohol abuse and very poor nutrition. Mr. Tracy parrish seemed to understand this when I told it to him; he did not disagree, but he said he was not litzy g to stop drinking. He could not wait to be discharged and start drinking again. He was offered joaquin cement in a rehab facility to help him with alcohol abuse, and he refused. So at this point, I do no t have anything to add to the heart failure treatment. I would not give anticoagulants. I think it would probably end up in a very poor outcome with his poor compliance. We can try and slow his heart rate with beta-blockers, and give him the best information possible. MELANIE/GRIFFIN Voice ID: [id number] Report ID: [id number]
--- NOTE | 2019-01-18 14:57 | PN ---
Subjective: The patient is asking how long his catheter is going to stay in, likely catheter 3-way o r regular catheter has been placed. It is not hematuric but is draining clear urine. They going to start Plavix and aspirin today and see how he does. If it is cleared, we could remove the catheter a nd see how he does. Objective: Vital Signs: Temperature 97.8 and 93 pulse, BP 106/69, room air 95%. Laboratory Studies: Shows white count normal 7.3, H and H 15 and 43, platelet count 181. Chemistry shows sodium slightly low 133, potassium low at 3.0, chloride 93, carbon dioxide 35 and GFR 87, this is up from 66. Assessment: For anticoagulation, Ferrell catheter in place. So the patient can be anticoagulated. We will continue to observe the patient and see how he does. Syncopal episode hematuria, atrial fibrillation, congestive heart failure, coronary artery disease, a lcohol abuse. WILL/GRIFFIN Voice ID: [id number] Report ID: [id number]
--- NOTE | 2019-01-18 15:03 | P.PN ---
Subjective Date of Service: 01/18/19 Primary Care Provider: Dr Calvillo - PCP and cardiology Chief Complaint: Syncope Pt seen and examined bedside. Chart Reviewed. Case DW with cardiology and Urology. This AM pt is s.p CBI tunneled cather placement. Still c/o of hematuria Review of Systems 10-point ROS is otherwise unremarkable Physical Examination - Vital Signs Temperature: 97.7 F Blood Pressure: 106/69 Pulse: 96 Respirations: 18 Pulse Ox (%): 99 - Physical Exam General: Alert, In no apparent distress HEENT: Atraumatic, PERRLA, EOMI Neck: Supple, JVD not distended Respiratory: Clear to auscultation bilaterally, Normal air movement Cardiovascular: Regular rate/rhythm, Normal S1 S2 Gastrointestinal: Normal bowel sounds, No tenderness Musculoskeletal: No tenderness Integumentary: No rashes Neurological: Normal speech, Normal tone, Normal affect Lymphatics: No axilla or inguinal lymphadenopathy - Studies Medications List Reviewed: Yes Assessment And Plan - Current Problems (Diagnosis) (1) Hematuria Current Visit: Yes Status: Acute Plan: Most Likely 2.2 to Anticoagulation -UA negative for UTI -Urology consulted. Appreciated Reccs -Pt to continue on CBI and IV fluids Qualifiers: Hematuria type: gross Qualified Code(s): R31.0 - Gross hematuria (2) Syncopal episodes Current Visit: Yes Status: Acute Plan: Syncopal Episodes most likely 2.2 to Electrolyte abnormality vs cardiac vs alcohol abuse -Head CT in the ED negative for Acute abnormality -MRI and Carotid Doppler Negative for CVA -ECHO WNL -Cardiology Consulted. Appreciated Reccs -Working with PT at this time. Qualifiers: Syncope type: unspecified Qualified Code(s): R55 - Syncope and collapse (3) Afib Current Visit: Yes Status: Chronic Plan: Aflutter 2.2 to Alcohol abuse vs Electrolyte Abnormality -Started on BB (Metoprolol 50mg BID) -Switched to ASA and plavix now Qualifiers: Atrial fibrillation type: chronic Qualified Code(s): I48.2 - Chronic atrial fibrillation (4) CHF (congestive heart failure) Current Visit: Yes Status: Chronic Plan: Diastolic CHF -ECHO with diastolic Dysfunction now Qualifiers: Heart failure type: diastolic Heart failure chronicity: chronic Qualified Code(s): I50.32 - Chronic diastolic (congestive) heart failure (5) CAD (coronary artery disease) Current Visit: Yes Status: Chronic Qualifiers: Coronary Disease-Associated Artery/Lesion type: [place] artery [place] vs. transplanted heart: [place] heart Associated angina: without angina Qualified Code(s): I25.10 - Atherosclerotic heart disease of [place] coronary artery without angina pectoris (6) Alcohol abuse Current Visit: Yes Status: Chronic Plan: On CIWA protocol -librium PRN -Banana Bag (7) Electrolyte abnormality Current Visit: Yes Status: Acute Plan: Hypomg, Hypo K and ca -Will replace -Most likely 2.2 to Alcohol abuse Discharge Plan: Home Plan to discharge in: 48 Hours - Code Status/Comfort Care Code Status Assessed: Yes Critical Care: No
[2019-01-18] MEDS: TRAMADOL HCL 50 MG TAB PO PRN (15:54)
[2019-01-18] MEDS ORDERED: LORazepam 2 MG/ML VIAL IV ONE (16:30)
[2019-01-18] MEDS: TEMAZEPAM 15 MG CAP PO PRN (20:23)
[2019-01-19 04:19] LABS: Absolute Lymphocytes (CBC) 1.6 K/uL (0.7-4.9); Absolute Neutrophil 6.1 K/uL (1.8-8.0); Eosinophils % 1.7 % (0-4.4); Hematocrit 43.9 % (39.6-49.0); Lymphocytes % 17.7 % (15.3-44.8); MPV 10.1 fL (7.6-11.3); Monocytes % 11.6 % (3.3-12.3); RBC Red Blood Cell Count 3.88 M/uL (4.33-5.43)
[2019-01-19 04:45] LABS: Albumin 3.1 g/dL (3.4-5.0); Bilirubin Total 1.3 mg/dL (0.2-1.0); Magnesium 1.8 mg/dL (1.8-2.4); Phosphorus 2.2 mg/dL (2.5-4.9); Potassium 3.9 mmol/L (3.5-5.1); Protein, Total 6.9 g/dL (6.4-8.2)
[2019-01-19] MEDS ORDERED: MAGNESIUM SULFATE 1 gm IVPB 1 GM/100 ML BAG IV ONE (04:57)
[2019-01-19] MEDS ORDERED: POTASSIUM CL SA 10 MEQ TAB PO ONE (04:58)
[2019-01-19] MEDS: POTASS/SODIUM PHOSPHATE 1 PKT POWD.PACK PO SCH ×3 (05:25→11:21)
[2019-01-19] MEDS: chlordiazePOXIDE HCl 5 MG CAP PO SCH ×3 (05:26→11:52)
[2019-01-19] MEDS: TRAMADOL HCL 50 MG TAB PO PRN (05:26)
[2019-01-19] MEDS ORDERED: ASPIRIN EC 81 MG TAB PO SCH (09:00)
[2019-01-19] MEDS ORDERED: TAMSULOSIN 0.4 MG SR CAP PO SCH (09:00)
[2019-01-19] MEDS ORDERED: CLOPIDOGREL 75 MG TABLET PO SCH (09:00)
--- NOTE | 2019-01-19 09:01 | PN ---
Subjective: The patient is resting. He has been started on his blood thinners. He is on aspirin an d Plavix. No significant signs of bleeding with the Ferrell catheter in place. I would leave Ferrell ca theter. Assessment: Hematuria after anticoagulation. I would recommend leaving the Ferrell catheter for a wee k, and then remove in a week. We should also go ahead and start him on Flomax, which may help his vo iding symptoms. PB/MODL Voice ID: [id number] Report ID: [id number]
[2019-01-19] MEDS: METOPROLOL TAR 50 MG TAB PO SCH (10:00)
[2019-01-19] MEDS: FOLIC ACID 1 MG, MULTIVITAMINS INJ 10 ML, THIAMINE HCL 100 MG in NA CHLORIDE 0.9% 1,000 ML IV SCH (10:01)
[2019-01-19 12:20] VITALS: O2SAT 98
[2019-01-19 12:57] VITALS: BP 135/70; TEMP 97.4
--- NOTE | 2019-01-19 16:00 | P.DS ---
Admission Date: 01/18/19 Discharge Date: 01/19/19 Primary Care Provider: Dr Calvillo - PCP and cardiology Disposition: ROUTINE DISCHARGE Discharge Condition: GOOD Reason for Admission: Syncope Consultations: Urology Cardiology - Problems (1) Hematuria Status: Acute Qualifiers: Hematuria type: gross Qualified Code(s): R31.0 - Gross hematuria (2) Syncopal episodes Status: Acute Qualifiers: Syncope type: unspecified Qualified Code(s): R55 - Syncope and collapse (3) Afib Status: Chronic Qualifiers: Atrial fibrillation type: chronic Qualified Code(s): I48.2 - Chronic atrial fibrillation (4) CHF (congestive heart failure) Status: Chronic Qualifiers: Heart failure type: diastolic Heart failure chronicity: chronic Qualified Code(s): I50.32 - Chronic diastolic (congestive) heart failure (5) CAD (coronary artery disease) Status: Chronic Qualifiers: Coronary Disease-Associated Artery/Lesion type: [place] artery [place] vs. transplanted heart: [place] heart Associated angina: without angina Qualified Code(s): I25.10 - Atherosclerotic heart disease of [place] coronary artery without angina pectoris (6) Alcohol abuse Status: Chronic (7) Electrolyte abnormality Status: Acute Brief History of Present Illness: 67 y/o M with pmhx of afib, CHF, CAD and Alcohol abuse who presents to the ED after having syncopal episode at the house. Pt has been having this episodes for over a month now and has been seen bu cardiology recently who placed pt on Holter monitor. Pt however only wore it for 1 hrs and then threw it away as it was making noise. This was last week. Pt then had another syncopal episode and was told to come to ER for further workup. Pt does drink alcohol everynight. Hospital Course: Overall during the hospital stay patient remained stable Patient was initially admitted to the hospital after he was having several falls at the house. 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 Patient was initially admitted to the hospital for syncopal workup, a CT, brain MRI, carotid Dopplers were done. Head CT and brain MRI were negative for any acute abnormality. Carotid Doppler was consistent with 40-50% blockage in the RCA however no significant stenosis noted. Patient also had a echocardiogram done here in the hospital which was concerning for dilated atrium however ejection fraction was within normal limits. Patient was also kept on tele monitor while here in the hospital and was noted to have atrial fibrillation. Cardiology was consulted who recommended the patient be started on beta-danuta along with aspirin and Plavix. Patient was started on aspirin and Plavix while here in the hospital. Patient also had severe electrolyte abnormality which were corrected here in the hospital most likely secondary to chronic alcohol abuse. Patient syncopal episode is most likely secondary to unsteady gait and atrial fibrillation. PT was consulted who recommended home health versus outpatient for rehab. After being started on aspirin Plavix patient had hematuria. Hemoglobin remained stable. Urology was thus consulted who recommended the patient have a Ferrell catheter placed with continuous bladder irrigation. Patient had continuous bladder irrigation over the 24 hr and did well overall. At that time. Recommendations were made from cardiology and neurology for patient to be discharged home under stable condition. Given the patient's history of chronic alcoholism initially acute alcoholic rehab was suggested. Patient however did decline to go to rehab. Patient does was discharged home under stable condition was given prescriptions for beta-danuta, aspirin, Plavix , Flomax. Patient was asked to follow up with primary care provider, middle school football coach and neurologist in about 1-2 days post discharge. Vital Signs/Physical Exam: Temp Pulse Resp BP Pulse Ox 97.4 F 85 24 H 135/70 96 01/19/19 12:00 01/19/19 12:00 01/19/19 12:00 01/19/19 12:00 01/19/19 12:00 General: Alert, In no apparent distress HEENT: Atraumatic, PERRLA, EOMI Neck: Supple, JVD not distended Respiratory: Clear to auscultation bilaterally, Normal air movement Cardiovascular: Regular rate/rhythm, Normal S1 S2 Gastrointestinal: Normal bowel sounds, No tenderness Musculoskeletal: No tenderness Integumentary: No rashes Neurological: Normal speech, Normal tone, Normal affect Lymphatics: No axilla or inguinal lymphadenopathy Laboratory Data at Discharge: WBC 8.9 K/uL (4.3-10.9) D 01/19/19 03:33 Hgb 15.2 g/dL (13.6-17.9) 01/19/19 03:33 Hct 43.9 % (39.6-49.0) 01/19/19 03:33 Plt Count 183 K/uL (152-406) 01/19/19 03:33 PT 13.0 SECONDS (9.5-12.5) H 01/16/19 13:05 INR 1.11 01/16/19 13:05 Sodium 137 mmol/L (136-145) 01/19/19 03:33 Potassium 3.9 mmol/L (3.5-5.1) 01/19/19 03:33 BUN 12 mg/dL (7-18) 01/19/19 03:33 Creatinine 0.92 mg/dL (0.55-1.3) 01/19/19 03:33 Glucose 140 mg/dL (74-106) H 01/19/19 03:33 Phosphorus 2.2 mg/dL (2.5-4.9) L 01/19/19 03:33 Magnesium 1.8 mg/dL (1.8-2.4) 01/19/19 03:33 Total Bilirubin 1.3 mg/dL (0.2-1.0) H 01/19/19 03:33 AST 44 U/L (15-37) H 01/19/19 03:33 ALT 40 U/L (12-78) 01/19/19 03:33 Alkaline Phosphatase 72 U/L (45-117) 01/19/19 03:33 Home Medications: Clopidogrel Bisulfate [Plavix*] 75 mg PO DAILY 01/16/19 Metoprolol Succinate [Toprol Xl] 200 mg PO DAILY 01/16/19 Aspirin 81 mg PO DAILY #30 tab.chew 01/19/19 Clopidogrel Bisulfate [Plavix*] 75 mg PO DAILY #30 tablet 01/19/19 Metoprolol Tartrate [Lopressor*] 50 mg PO BID #60 tab 01/19/19 Tamsulosin [Flomax] 0.4 mg PO DAILY #30 cap 01/19/19 chlordiazePOXIDE HCl [Librium*] 10 mg PO Q12H #30 cap 01/19/19 New Medications: Aspirin 81 mg PO DAILY #30 tab.chew chlordiazePOXIDE HCl [Librium*] 10 mg PO Q12H #30 cap Clopidogrel Bisulfate [Plavix*] 75 mg PO DAILY #30 tablet Metoprolol Tartrate [Lopressor*] 50 mg PO BID #60 tab Tamsulosin [Flomax] 0.4 mg PO DAILY #30 cap Diet: Regular Activity: Ad michael Followup: Silverio Calvillo MD [Primary Care Provider] - 1 Week (call to schedule an appointment) Armida Stallings MD [ACTIVE - CAN ADMIT] - 01/30/19 ()
== END 2019-01-19 14:48 | disposition home or self-care (01) | DRG 312 ==
LOC: ER 12:10 → ERHOLD 14:47 → 4TH 17:31 → OBSVTOIN 01-18 15:35
PROVIDERS: ADMIT Family Medicine; ATTEND Family Medicine
DX: R55 Syncope and collapse (principal); I50.32 Chronic diastolic (congestive) heart failure; F10.230 Alcohol dependence with withdrawal, uncomplicated; D68.32 Hemorrhagic disorder due to extrinsic circulating anticoagulants; E87.6 Hypokalemia; R31.0 Gross hematuria; I25.10 Atherosclerotic heart disease of native coronary artery without angina pectoris; Z91.81 History of falling; R26.81 Unsteadiness on feet; F10.20 Alcohol dependence, uncomplicated; E83.42 Hypomagnesemia; I48.2 Chronic atrial fibrillation; Z79.01 Long term (current) use of anticoagulants
CPT/HCPCS: 36415; 70450; 70549; 70551; 71045; 80048; 80053; 81001; 82607; 82746; 83735; 83880; 84100; 84132; 84484; 85025; 85610; 93005; 93306; 93880; 94760; 96365; 96367; 96375; 97116; 97162; 99285; A9577; G0103; G0378; J1650; J3411; J3475; J7030

== ENCOUNTER 2023-07-03 04:58 | Emergency (ER) | payer OTHER ==
[2023-07-03] MEDS ORDERED: cloNIDine HCL 0.1 MG TAB ONE (05:31)
[2023-07-03] MEDS ORDERED: TDAP (DIPHTH,PERTUSS(ACELL),TET VAC) 0.5 ML VIAL IMVAC ONE (05:31)
[2023-07-03] MEDS ORDERED: THIAMINE 200 MG/2 ML INJ ONE (05:31)
[2023-07-03] MEDS ORDERED: NA CHLORIDE 0.9% 1,000 ML ONE (05:31)
[2023-07-03 05:33] LABS: Absolute Lymphocytes (CBC) 1.2 K/uL (0.7-4.9); Hematocrit 39.2 % (39.6-49.0); Lymphocytes % 16.6 % (15.3-44.8); MCV 111.2 fL (80-100); MPV 8.7 fL (7.6-11.3); Platelets 159 thou/uL (152-406); RBC Red Blood Cell Count 3.52 M/uL (4.33-5.43)
[2023-07-03 05:38] LABS: Protime INR 1.28
[2023-07-03] MEDS ORDERED: ONDANSETRON 4 MG/2 ML VIAL ONE (05:40)
[2023-07-03] MEDS ORDERED: MORPHINE 4 MG/ML SYR ONE (05:40)
[2023-07-03 05:48] LABS: ALT/SGPT 54 U/L (16-61); Albumin 3.8 g/dL (3.4-5.0); Alkaline Phosphatase 63 U/L (45-117); BUN Blood Urea Nitrogen 48 mg/dL (7-18); Bicarbonate 27 mEq/L (21-32); Bilirubin Direct 0.3 mg/dL (0-0.2); Bilirubin Indirect, Calculated 0.8 mg/dL (0.2-0.8); Bilirubin Total 1.1 mg/dL (0.2-1.0); Glomerular Filtration Rate 20 ml/min (=/>90); Glucose Level 108 mg/dL (74-106); Protein, Total 7.5 g/dL (6.4-8.2); Sodium Level 133 mEq/L (136-145)
[2023-07-03 05:50] LABS: Potassium 3.9 mEq/L (3.5-5.1)
[2023-07-03 05:51] LABS: AST/SGOT 46 U/L (15-37)
[2023-07-03 06:05] LABS: Troponin High Sensitivity 28.4 pg/mL (<58.9)
[2023-07-03] MEDS ORDERED: HYDRALAZINE HCL 20 MG/ML VIAL ONE (06:30)
--- NOTE | 2023-07-03 06:41 | EDPHYS ---
Physician Documentation [facility] Name: Morgan Araujo Age: 73 yrs Sex: Male : 1950 Arrival Date: 07/03/2023 Time: 04:58 Bed 3 Private MD: ED Physician Emanuel Meléndez HPI: 07/03 05:10 This 73 yrs old Male presents to ER via EMS with complaints of Fall Injury. sp4 06:23 73-year-old male presents with generalized weakness, bilateral lower extremity weakness sp4 and headache after a fall yesterday evening at 11. Patient states he drinks up to 5 alcoholic beverages per day. Patient takes Plavix and Eliquis for chronic atrial fibrillation and history of coronary artery disease. Patient states he fell backwards and struck his head on the floor at 11 PM. After that he developed generalized weakness and could not walk to the bathroom. On arrival patient complained of moderate to severe headache and also developed vomiting in the emergency room. Patient has arrived with EMS. Historical: - Allergies: 05:02 No Known Allergies; kl - Home Meds: 05:02 apixaban 5 mg (74 tabs) oral Tablet, Dose Pack 2 times per day [Active]; losartan 100 kl mg oral tablet daily [Active]; atorvastatin 40 mg oral tablet daily [Active]; clopidogrel 75 mg oral tablet daily [Active]; hydrochlorothiazide 25 mg Oral tablet every morning [Active]; zolpidem 10 mg Oral tablet every day at bedtime [Active]; Lopressor 50 mg Oral tablet 1 tab daily [Active]; - PMHx: 05:02 Atrial Fib; CAD; CHF; Hypertension; Myocardial infarction; kl - PSHx: 05:02 Stented artery; kl - Immunization history:: Adult Immunizations. - Social history:: Smoking status: . - Immunization history: Last tetanus immunization: > 10 years ago. - Family history:: not pertinent. ROS: 06:23 Constitutional: Negative for fever, chills, and weight loss, Neuro: Positive for sp4 headache, positive for bilateral lower extremity weakness positive for generalized weakness negative for seizures 06:23 Skin: Positive for posterior scalp abrasion, and right posterior arm abrasion and skin tear 06:23 All other systems are negative. Exam: 06:23 Constitutional: This is a well developed, well nourished patient who is awake, alert, sp4 and in no acute distress. Positive for generalized weakness and fairly uniform bilateral lower extremity weakness. Head/Face: Normocephalic, positive for posterior scalp abrasion and contusion Eyes: Pupils equal round and reactive to light, extra-ocular motions intact. Lids and lashes normal. Conjunctiva and sclera are not injected. Cornea within normal limits. Periorbital areas with no swelling, redness, or edema. ENT: Nares patent. No nasal discharge, no septal abnormalities noted. Tympanic membranes are normal and external auditory canals are clear. Oropharynx with no redness, swelling, or masses, exudates, or evidence of obstruction, uvula midline. Mucous membranes moist. Neck: Trachea midline, no thyromegaly or masses palpated, and no cervical lymphadenopathy. Supple, full range of motion without nuchal rigidity, or vertebral point tenderness. Chest/axilla: Normal chest wall appearance and motion. Nontender with no deformity. No lesions are appreciated. Cardiovascular: Regular rate and rhythm with a normal S1 and S2. No gallops, murmurs, or rubs. Normal PMI, no JVD. No pulse deficits. Respiratory: Lungs have equal breath sounds bilaterally, clear to auscultation and percussion. No rales, rhonchi or wheezes noted. No increased work of breathing, no retractions or nasal flaring. Abdomen/GI: Soft, non-tender, with normal bowel sounds. No distension or tympany. No guarding or rebound. No evidence of tenderness throughout. Back: No spinal tenderness. No costovertebral tenderness. Male : Normal genitalia with no discharge or lesions. Skin: Warm, dry with normal turgor. Normal color with no rashes, no lesions, and no evidence of cellulitis. MS/ Extremity: Pulses equal, no cyanosis. Neurovascular intact. Full, normal range of motion. Neuro: Awake and alert, GCS 15, oriented to person, place, time, and situation. Cranial nerves II-XII grossly intact. Sensory grossly intact. Positive generalized weakness. Psych: Awake, alert, with orientation to person, place and time. Behavior, mood, and affect are within normal limits 06:41 ECG was reviewed by the Attending Physician. EKG time 0 514, atrial fibrillation at the sp4 rate of 76, no ST elevation or depression. Vital Signs: 05:05 BP 180 / 105; Pulse 92; Resp 18; Temp 98.2; Pulse Ox 99% ; Height 5 ft. 9 in. ; rv 05:37 BP 206 / 127; Pulse 72; Resp 22; Pulse Ox 93% ; rv 05:42 Pulse Ox 89% on R/A; rv 05:42 Pulse Ox 97% on 2 lpm NC; rv 06:15 BP 189 / 98; Pulse 71; Resp 17; Pulse Ox 98% 2 lpm ; rv 06:30 Weight 86 kg; rv 06:46 BP 145 / 91; Pulse 84; Resp 18; Temp 98; Pulse Ox 97% 2 lpm ; rv 06:30 Body Mass Index 28.00 (86.00 kg, 175.26 cm) rv NIH Stroke Scale Scores: 05:05 NIHSS Score: 0 rv Delilah Coma Score: 05:05 Eye Response: spontaneous(4). Motor Response: obeys commands(6). Verbal Response: rv oriented(5). Total: 15. 06:00 Eye Response: spontaneous(4). Motor Response: obeys commands(6). Verbal Response: rv oriented(5). Total: 15. 06:47 Eye Response: spontaneous(4). Motor Response: obeys commands(6). Verbal Response: rv oriented(5). Total: 15. Trauma Score (Adult): 05:05 Eye Response: spontaneous(1); Verbal Response: oriented(1); Motor Response: obeys rv commands(2); Systolic BP: > 89 mm Hg(4); Respiratory Rate: 10 to 29 per min(4); Delilah Score: 15; Trauma Score: 12 MDM: 05:12 Patient medically screened. sp4 06:35 Differential diagnosis: abrasion, closed head injury, contusion, fracture, laceration, sp4 multiple trauma, sprain, strain. Data reviewed: vital signs, nurses notes, EMS record, old medical records, lab test result(s), EKG, radiologic studies, CT scan. Consideration of Admission/Observation Escalation of care including admission/observation considered. Management of patient was discussed with the following: Infection Prevention Specialist: Left subdural hematoma noted on the CAT scan. Subdural hematoma tracking through left tentorium, no midline shift, mass effect on the left lateral ventricle. ED course: Patient was discussed with neurosurgeon at [facility]. Patient is going to be sent by air medical transport. Blood pressure controlled with IV hydralazine. Blood pressure at this time 145/91. 06:42 ED course: COMPARISON: CT abdomen pelvis without/with contrast July 30, 2022. sp4 FINDINGS: CHEST: Lungs: Unremarkable. No mass. No consolidation. Pleural space: No pleural effusion or pneumothorax. Heart: Cardiomegaly. Coronary artery calcifications. No significant pericardial effusion. Mediastinum: No pneumomediastinum. ABDOMEN: Liver: Fatty liver. Gallbladder and bile ducts: Unremarkable. No calcified stones. No ductal dilation. Pancreas: Unremarkable. No ductal dilation. Spleen: Unremarkable. No splenomegaly. Adrenals: Unremarkable. No mass. Kidneys and ureters: Punctate right nephrolithiasis. Mild bilateral perinephric stranding, nonspecific. No hydronephrosis or ureter stone. Stomach and bowel: Colonic diverticulosis. No gastric wall thickening. No obstruction. PELVIS: Appendix: The visualized appendix is normal. No pericecal inflammation to suggest acute appendicitis. Bladder: Unremarkable. No stones. Reproductive: Unremarkable as visualized. CHEST, ABDOMEN and PELVIS: Intraperitoneal space: Unremarkable. No significant fluid collection. No free air. Bones/joints: No acute sternal fracture. No sternoclavicular joint dislocation. No vertebral compression fracture. Lateral alignment is maintained. No definite rib fracture. Multilevel degenerative changes in the spine. No acute fracture visualized in the pelvis or proximal femora. No hip dislocation. Soft tissues: Unremarkable. Vasculature: Unremarkable. No aortic aneurysm. Lymph nodes: Unremarkable. No enlarged lymph nodes. IMPRESSION: 1. No acute intrathoracic or intra-abdominal injury identified. 2. Punctate right nephrolithiasis. 3. Colonic diverticulosis. 4. Fatty liver. 5. Additional non-emergent findings as above.. ED course: FINDINGS: There is acute subdural hemorrhage tracking along the left frontal and left temporal regions as well as the interhemispheric fissure and left tentorium. Subdural hemorrhage tracking along the left aspect of the interhemispheric fissure measures up to 1.8 cm in thickness. Left frontal subdural hemorrhage measures up to 7 mm in thickness. There is mild mass effect on the left frontal lobe, without significant midline shift. The basal cisterns are preserved. No hydrocephalus. No acute osseous abnormality. The paranasal sinuses and mastoids are aerated IMPRESSION: 1. Acute left-sided subdural hemorrhage.. 08/26 05:10 Order name: Acetaminophen; Complete Time: 06:11 4 07/03 05:10 Order name: Basic Metabolic Panel; Complete Time: 06:11 07/03 05:10 Order name: CBC with Diff; Complete Time: 06:07/03 05:10 Order name: ETOH Level; Complete Time: 06:11 07/03 05:10 Order name: Hepatic Function; Complete Time: 06:07/03 05:10 Order name: PT-INR; Complete Time: 06:07/03 05:10 Order name: Ptt, Activated; Complete Time: 06:11 07/03 05:10 Order name: Salicylate; Complete Time: 06:07/03 05:17 Order name: BNP; Complete Time: 06:07/03 05:17 Order name: Troponin High Sensitivity; Complete Time: 06:11 07/03 05:22 Order name: Glucose, Ancillary Testing; Complete Time: 06:11 EDMS 07/03 06:26 Order name: CREATININE WHOLE BLOOD; Complete Time: 06:47 EDMS 07/03 05:11 Order name: CT Head Brain wo Cont sp4 07/03 06:03 Order name: Chest Abd Pelvis Wo Con EDMS 07/03 05:10 Order name: EKG; Complete Time: 05:11 07/03 05:10 Order name: EKG - Nurse/Tech; Complete Time: 05:11 07/03 05:10 Order name: IV Saline Lock; Complete Time: 05:11 07/03 05:10 Order name: Labs collected and sent; Complete Time: 05:07/03 05:10 Order name: Suicide Screening ([place]); Complete Time: 05:11 4 EC:41 Rate is 76 beats/min. Rhythm is irregularly irregular, A fib. QRS Alexander is Normal. T sp4 waves are Normal. No ST changes noted. Clinical impression: Atrial Fibrillation and No evidence of ischemia. Interpreted by me. Administered Medications: 05:34 Drug: Thiamine IV 100 mg Route: IV; Rate: bolus; Site: right hand; rv 07:04 Follow up: Response: No adverse reaction; IV Status: Completed infusion rv 05:35 Not Given (Duplicate Order): Tetanus-Diphtheria Toxoid IM Adult 0.5 ml IM once; Provide rv Vaccine Information Statement (VIS). 05:35 Drug: cloNIDine PO 0.2 mg Route: PO; rv 07:04 Follow up: Response: No adverse reaction rv 05:35 Drug: Ondansetron IVP 4 mg Route: IVP; Site: right hand; rv 07:04 Follow up: Response: No adverse reaction rv 05:35 Drug: morphine IVP or IV 4 mg Route: IVP; Infused Over: 4 mins; Site: right hand; rv 07:04 Follow up: Response: No adverse reaction rv 05:35 Drug: Boostrix Tdap IM 0.5 ml Route: IM; Site: right deltoid; rv 07:03 Follow up: Response: No adverse reaction rv 06:22 Drug: hydrALAZINE IVP 20 mg Route: IVP; Site: right forearm; rv 07:03 Follow up: Response: No adverse reaction rv 06:43 Drug: metoCLOPramide IVP 10 mg Route: IVP; Site: right hand; rv 07:03 Follow up: Response: No adverse reaction rv 07:02 Drug: Keppra IV 1000 mg Route: IV; Rate: bolus; Site: right antecubital; rv 07:02 Follow up: IV Status: Infusion continued upon transfer rv Disposition Summary: 07/03/23 06:40 Transfer Ordered Transfer Location: [place] [id number] Reason: Higher level of care sp4 Condition: Stable sp4 Problem: new sp4 Symptoms: have improved sp4 Accepting Physician: Neurosurgery at [facility], Dr. Prather (07/03/23 07:05) rv Diagnosis - Traumatic subdural hemorrhage with loss of consciousness of unspecified duration sp4 - Alcohol intoxication, acute fall at home, acute renal insufficiency, atrial sp4 fibrillation, chronic atrial fibrillation on chronic anticoagulation Forms: - Medication Reconciliation Form sp4 - SBAR form sp4 NIH Stroke Scale - NIH Stroke Score Date: 07/03/2023 Time: 05:05 Total Score = 0 10. Dysarthria (speech clarity - read or repeat words) - 0(Normal) 11. Extinction and Inattention (visual/tactile/auditory/spatial/personal) - 0(No abnormality) 1a. Level of Consciousness (LOC) - 0(Alert) 1b. Level of Consciousness (LOC) (Month \T\ Age) - 0(Both) 1c. LOC Commands (Open \T\ Closes Eyes/Emergency Communications Operator) - 0(Both) 2. Best Gaze (Lateral Gaze Paresis) - 0(Normal) 3. Visual Field Loss - 0(No visual loss) 4. Facial Palsy - 0(Normal) 5a. Left Arm: Motor (10-second hold) - 0(No drift) 5b. Right Arm: Motor (10-second hold) - 0(No drift) 6a. Left Leg: Motor (5-second hold - always test supine) - 0(No drift) 6b. Right Leg: Motor (5-second hold - always test supine) - 0(No drift) 7. Limb Ataxia (finger/nose \T\ heel/dumont - test with eyes open) - 0(Absent) 8. Sensory Loss (pinprick arms/legs/face) - 0(Normal) 9. Best Language: Aphasia (description/naming/reading) - 0(No aphasia) Initials: rv Signatures: Dispatcher [employer] EDSusy Gifford RN RN kl Vicente, Ronaldo, RN RN rv Potepalov, Sergey, MD MD sp4 Corrections: (The following items were deleted from the chart) 06:02 05:12 Chest Abdomen Pelvis W Con+CT.RAD.ROSSYZ ordered. EDMS EDMS 07:05 06:40 Neurosurgery at [facility], Dr. Prather sp4 rv
--- NOTE | 2023-07-03 06:41 | ER ---
Nurse's Notes [facility] Name: Morgan Araujo Age: 73 yrs Sex: Male : 1950 Arrival Date: 07/03/2023 Time: 04:58 Bed 3 Private MD: Diagnosis: Traumatic subdural hemorrhage with loss of consciousness of unspecified duration;Alcohol intoxication, acute fall at home, acute renal insufficiency, atrial fibrillation, chronic atrial fibrillation on chronic anticoagulation Presentation: 07/03 05:03 Chief complaint: EMS states: PT FELL MULTIPLE TIME AT HOME, + LOC, UNABLE TO RECALL rv INCIDENT. COMPLAINING OF HEADACHE, PAIN AT THE BACK, MID. ABRASION TO THE RIGHT UPPER ARM. Care prior to arrival: None. Mechanism of Injury: Fall from standing position. an unknown distance. Trauma event details: Injury occurred in the [facility], Injury occurred: at home. Injury occurred: July 03, 2023. 05:03 Acuity: EARNEST 2 rv 05:03 Method Of Arrival: EMS: [facility] rv 05:08 Coronavirus screen: At this time, the client does not indicate any symptoms associated rv with coronavirus-19. Ebola Screen: No symptoms or risks identified at this time. Initial Sepsis Screen: Does the patient meet any 2 criteria? No. Patient's initial sepsis screen is negative. Does the patient have a suspected source of infection? No. Patient's initial sepsis screen is negative. Risk Assessment: Do you want to hurt yourself or someone else? Patient reports no desire to harm self or others. Onset of symptoms was July 03, 2023. Trauma Activation: Not Applicable Physician: ED Physician; Name: ; Notified At: ; Arrived At: Physician: General Surgeon; Name: ; Notified At: ; Arrived At: Physician: Radiology; Name: ; Notified At: ; Arrived At: Physician: Respiratory; Name: ; Notified At: ; Arrived At: Physician: Lab; Name: ; Notified At: ; Arrived At: Historical: - Allergies: 05:02 No Known Allergies; kl - Home Meds: 05:02 apixaban 5 mg (74 tabs) oral Tablet, Dose Pack 2 times per day [Active]; losartan 100 kl mg oral tablet daily [Active]; atorvastatin 40 mg oral tablet daily [Active]; clopidogrel 75 mg oral tablet daily [Active]; hydrochlorothiazide 25 mg Oral tablet every morning [Active]; zolpidem 10 mg Oral tablet every day at bedtime [Active]; Lopressor 50 mg Oral tablet 1 tab daily [Active]; - PMHx: 05:02 Atrial Fib; CAD; CHF; Hypertension; Myocardial infarction; kl - PSHx: 05:02 Stented artery; kl - Immunization history:: Adult Immunizations. - Social history:: Smoking status: . - Immunization history: Last tetanus immunization: > 10 years ago. - Family history:: not pertinent. Screenin:05 Abuse screen: Denies threats or abuse. Denies injuries from another. Tuberculosis rv screening: No symptoms or risk factors identified. 05:[address] [facility] ED Fall Risk Assessment (Adult) History of falling in the last 3 months, rv including since admission Yes- fall prone (multiple falls) (3 pts) Score/Fall Risk Level 3 or more points = High Risk Oriented to surroundings, Maintained a safe environment, Educated pt \T\ family on fall prevention, incl call for assistance when getting out of bed, Assessed \T\ reinforced patient's understanding of fall precautions, Provided non-skid footwear, Hourly rounding (assess needs \T\ fall precautionary measures) done, Used ambulatory aids as needed (educated on \T\ assisted with), Used gait belt as appropriate Implemented a Fall Risk Plan of Care, Apply high fall risk patient identification: yellow non skid footwear/ fall signage, Placed fall mat w/ non beveled edge next to bed, Activated bed/chair alarm, Remained w/in arm's length of patient and in sight while toileting, Offered frequent toileting (1:1 observation), Remained with patient while ambulating, Utilized family, sitter, or virtual applications support analyst as indicated. Nutritional screening: No deficits noted. Primary Survey: 05:05 NO uncontrolled hemorrhage observed. Breathing/Chest: Spontaneous respiratory effort, rv equal unlabored respirations, breath sounds clear bilaterally, regular pattern, symmetrical chest rise and fall. Circulation: No external hemorrhage present. Regular and strong central pulse, skin warm/dry/normal color. Disability Pupils are equal, round, reactive to light and accommodation. Client is alert. Exposure/Environment: All clothing and personal items were removed. A warming method has been applied: A warm blanket has been provided to the patient. 07:04 Reassessment Breathing: Spontaneous respiratory effort, equal unlabored respirations, rv breath sounds clear bilaterally, regular pattern with symmetrical chest rise and fall. Secondary Survey: 05:05 HEENT: No deficits noted. HEENT: Head No injury/deformity. Gastrointestinal: No rv deficits noted. : No deficits noted. Musculoskeletal: No signs and/or symptoms reported regarding the musculoskeletal system. Assessment: 05:03 General: Appears comfortable, Behavior is calm, cooperative. Pain: Complains of pain in rv HEAD, BACK. Neuro: Level of Consciousness is awake, alert, obeys commands, Oriented to person, place, time, situation, Reports headache a syncopal episode. Cardiovascular: Capillary refill < 3 seconds Patient's skin is warm and dry. Rhythm is atrial fibrillation. Respiratory: Airway is patent Respiratory effort is even, unlabored. Derm: ABRASION TO THE RIGHT UPPER ARM. Musculoskeletal: Circulation, motion, and sensation intact. Capillary refill < 3 seconds, Range of motion: intact in all extremities. 06:56 Reassessment: REPORT GIVEN TO ILAN MATSON. rv Vital Signs: 05:05 BP 180 / 105; Pulse 92; Resp 18; Temp 98.2; Pulse Ox 99% ; Height 5 ft. 9 in. ; rv 05:37 BP 206 / 127; Pulse 72; Resp 22; Pulse Ox 93% ; rv 05:42 Pulse Ox 89% on R/A; rv 05:42 Pulse Ox 97% on 2 lpm NC; rv 06:15 BP 189 / 98; Pulse 71; Resp 17; Pulse Ox 98% 2 lpm ; rv 06:30 Weight 86 kg; rv 06:46 BP 145 / 91; Pulse 84; Resp 18; Temp 98; Pulse Ox 97% 2 lpm ; rv 06:30 Body Mass Index 28.00 (86.00 kg, 175.26 cm) rv Crane Coma Score: 05:05 Eye Response: spontaneous(4). Motor Response: obeys commands(6). Verbal Response: rv oriented(5). Total: 15. 06:00 Eye Response: spontaneous(4). Motor Response: obeys commands(6). Verbal Response: rv oriented(5). Total: 15. 06:47 Eye Response: spontaneous(4). Motor Response: obeys commands(6). Verbal Response: rv oriented(5). Total: 15. Trauma Score (Adult): 05:05 Eye Response: spontaneous(1); Verbal Response: oriented(1); Motor Response: obeys rv commands(2); Systolic BP: > 89 mm Hg(4); Respiratory Rate: 10 to 29 per min(4); Delilah Score: 15; Trauma Score: 12 NIH Stroke Scale Scores: 05:05 NIHSS Score: 0 rv ED Course: 04:59 Patient arrived in ED. [email or web address] 05:03 Omar Beavers, RN is Primary Nurse. rv 05:04 Triage completed. rv 05:05 Placed in gown. rv 05:05 Patient maintains SpO2 saturation greater than 95% on room air. rv 05:07 No provider procedures requiring assistance completed. Maintain EMS IV. Dressing rv intact. Good blood return noted. Site clean \T\ dry. Gauge \T\ site: 18 RIGHT HAND. 05:08 Arm band placed on right wrist. rv 05:08 Thermoregulation: warm blanket given to patient. rv 05:10 Emanuel Meléndez MD is Attending Physician. sp4 05:51 Inserted saline lock: 20 gauge in right forearm, using aseptic technique. rv 06:15 CT Head Brain wo Cont In Process Unspecified. EDMS 06:16 Chest Abd Pelvis Wo Con In Process Unspecified. EDMS 06:27 initiated a transfer with Christina from the [facility] [place]. 06:34 connected the neurosurgeon contract associate manager for [facility] with Dr. Meléndez for patient transfer consultation. 06:35 administrative approval given by Christina Loo Rn / patient has been accepted to [facility] ER/ Dr. Burt Neal has accepted the patient in transfer/ report to be called to [phone]. 07:04 Patient transferred, IV remains in place. rv 07:05 Provided Education on: stroke. rv Administered Medications: 05:34 Drug: Thiamine IV 100 mg Route: IV; Rate: bolus; Site: right hand; rv 07:04 Follow up: Response: No adverse reaction; IV Status: Completed infusion rv 05:35 Not Given (Duplicate Order): Tetanus-Diphtheria Toxoid IM Adult 0.5 ml IM once; Provide rv Vaccine Information Statement (VIS). 05:35 Drug: cloNIDine PO 0.2 mg Route: PO; rv 07:04 Follow up: Response: No adverse reaction rv 05:35 Drug: Ondansetron IVP 4 mg Route: IVP; Site: right hand; rv 07:04 Follow up: Response: No adverse reaction rv 05:35 Drug: morphine IVP or IV 4 mg Route: IVP; Infused Over: 4 mins; Site: right hand; rv 07:04 Follow up: Response: No adverse reaction rv 05:35 Drug: Boostrix Tdap IM 0.5 ml Route: IM; Site: right deltoid; rv 07:03 Follow up: Response: No adverse reaction rv 06:22 Drug: hydrALAZINE IVP 20 mg Route: IVP; Site: right forearm; rv 07:03 Follow up: Response: No adverse reaction rv 06:43 Drug: metoCLOPramide IVP 10 mg Route: IVP; Site: right hand; rv 07:03 Follow up: Response: No adverse reaction rv 07:02 Drug: Keppra IV 1000 mg Route: IV; Rate: bolus; Site: right antecubital; rv 07:02 Follow up: IV Status: Infusion continued upon transfer rv Medication: 05:08 VIS not applicable for this client. rv Output: 06:55 Urine: 500ml (Voided); Total: 500ml. rv Outcome: 06:40 ER care complete, transfer ordered by MD. pierce 07:04 Transferred by helicopter to [facility], Transfer form completed. X-rays sent rv w/ patient. 07:04 Condition: stable 07:04 Instructed on the need for transfer. 07:05 Patient's length of stay was not longer than 2 hours. rv 07:05 Patient left the ED. rv NIH Stroke Scale - NIH Stroke Score Date: 07/03/2023 Time: 05:05 Total Score = 0 10. Dysarthria (speech clarity - read or repeat words) - 0(Normal) 11. Extinction and Inattention (visual/tactile/auditory/spatial/personal) - 0(No abnormality) 1a. Level of Consciousness (LOC) - 0(Alert) 1b. Level of Consciousness (LOC) (Month \T\ Age) - 0(Both) 1c. LOC Commands (Open \T\ Closes Eyes/Soaking Pits Supervisor) - 0(Both) 2. Best Gaze (Lateral Gaze Paresis) - 0(Normal) 3. Visual Field Loss - 0(No visual loss) 4. Facial Palsy - 0(Normal) 5a. Left Arm: Motor (10-second hold) - 0(No drift) 5b. Right Arm: Motor (10-second hold) - 0(No drift) 6a. Left Leg: Motor (5-second hold - always test supine) - 0(No drift) 6b. Right Leg: Motor (5-second hold - always test supine) - 0(No drift) 7. Limb Ataxia (finger/nose \T\ heel/dumont - test with eyes open) - 0(Absent) 8. Sensory Loss (pinprick arms/legs/face) - 0(Normal) 9. Best Language: Aphasia (description/naming/reading) - 0(No aphasia) Initials: rv Signatures: Dispatcher [employer] Susy Ceja, Heather Lujan RN, Ronaldo, RN RN rv Jeffries, Jennifer [email or web address] Emanuel Meléndez MD MD sp4
[2023-07-03] MEDS ORDERED: METOCLOPRAMIDE 10 MG/2mL INJ ONE (06:50)
[2023-07-03] MEDS ORDERED: LEVETIRACETAM 500 MG/5 ML VIAL IV ONE (07:10)
[2023-07-03] MEDS ORDERED: NA CHLORIDE 0.9% 100 ML ONE (07:10)
[2023-07-03 07:38] VITALS: BP 145/91; TEMP 98; O2SAT 97
--- NOTE | 2023-07-03 19:46 | RAD REPORT ---
EXAM DESCRIPTION: CT - Head Brain Wo Cont - 07/03/2023 6:58 am ADDENDUM #1 Findings were discussed with Dr. Emanuel Meléndez at 6:35 AM central standard time on 07/03/2023 Electronically signed by: Roxana Fuller MD 07/03/2023 6:38 AM CDT End of Addendum EXAM DESCRIPTION: CT HEAD WITHOUT IV CONTRAST TECHNIQUE: Computerized tomography of the head was performed without contrast material. This exam wa s performed according to our department optimization program which includes automated exposure contro l, adjustment of the mA and/or kV according to patient size, and/or use of iterative reconstruction t echnique. CLINICAL HISTORY: Pain after fall COMPARISON: 06/18/2019. FINDINGS: There is acute subdural hemorrhage tracking along the left frontal and left temporal regio ns as well as the interhemispheric fissure and left tentorium. Subdural hemorrhage tracking along the left aspect of the interhemispheric fissure measures up to 1.8 cm in thickness. Left frontal subdura l hemorrhage measures up to 7 mm in thickness. There is mild mass effect on the left frontal lobe, wi thout significant midline shift. The basal cisterns are preserved. No hydrocephalus. No acute osseous abnormality. The paranasal sinuses and mastoids are aerated IMPRESSION: 1. Acute left-sided subdural hemorrhage. Electronically signed by: Roxana Fuller MD 07/03/2023 6:32 AM CDT Due to temporary technical issues with the PACS/Fluency reporting system, reports are being signed by the in house radiologists without review as a courtesy to insure prompt reporting. The interpreting radiologist is fully responsible for the content of the report.
--- NOTE | 2023-07-03 19:54 | RAD REPORT ---
EXAM DESCRIPTION: CT - Chest Abd Pelvis Wo Con - 07/03/2023 6:58 am CLINICAL HISTORY: The patient is 73 years old and is Male; fall at home, R leg weakness TECHNIQUE: Axial computed tomography images of the chest, abdomen and pelvis without intravenous con trast. Sagittal and coronal reformatted images were created and reviewed. This CT exam was perfor med using one or more of the following dose reduction techniques: automated exposure control, adjus tment of the mA and/or kV according to patient size, and/or use of iterative reconstruction technique . COMPARISON: CT abdomen pelvis without/with contrast July 30, 2022. FINDINGS: CHEST: Lungs: Unremarkable. No mass. No consolidation. Pleural space: No pleural effusion or pneumothorax. Heart: Cardiomegaly. Coronary artery calcifications. No significant pericardial effusion. Mediastinum: No pneumomediastinum. ABDOMEN: Liver: Fatty liver. Gallbladder and bile ducts: Unremarkable. No calcified stones. No ductal dilation. Pancreas: Unremarkable. No ductal dilation. Spleen: Unremarkable. No splenomegaly. Adrenals: Unremarkable. No mass. Kidneys and ureters: Punctate right nephrolithiasis. Mild bilateral perinephric stranding, nonspecific. No hydronephrosis or ureter stone. Stomach and bowel: Colonic diverticulosis. No gastric wall thickening. No obstruction. PELVIS: Appendix: The visualized appendix is normal. No pericecal inflammation to suggest acute appendici tis. Bladder: Unremarkable. No stones. Reproductive: Unremarkable as visualized. CHEST, ABDOMEN and PELVIS: Intraperitoneal space: Unremarkable. No significant fluid collection. No free air. Bones/joints: No acute sternal fracture. No sternoclavicular joint dislocation. No vertebral compression fracture. Lateral alignment is maintained. No definite rib fracture. Multilevel degenerative changes in the spine. No acute fracture visualized in the pelvis or proximal femora. No hip dislocation. Soft tissues: Unremarkable. Vasculature: Unremarkable. No aortic aneurysm. Lymph nodes: Unremarkable. No enlarged lymph nodes. IMPRESSION: 1. No acute intrathoracic or intra-abdominal injury identified. 2. Punctate right nephrolithiasis. 3. Colonic diverticulosis. 4. Fatty liver. 5. Additional non-emergent findings as above. Electronically signed by: Zehra Zapata MD 07/03/2023 6:37 AM CDT Due to temporary technical issues with the PACS/Fluency reporting system, reports are being signed by the in house radiologists without review as a courtesy to insure prompt reporting. The interpreting radiologist is fully responsible for the content of the report.
--- NOTE | 2023-07-04 15:07 | EKG ---
Test Date: 2023-07-03 Test Time: 05:14:01 Celery Stripper: ANNA MEASUREMENT RESULTS: Intervals: Rate: 76 IA: QRSD: 94 QT: 402 QTc: 452 Bolton: P: IA: QRS: 29 T: 44 INTERPRETIVE STATEMENTS: Atrial fibrillation Anterior infarct, age undetermined Abnormal ECG Compared to ECG 01/16/2019 12:42:58 ST (T wave) deviation no longer present Myocardial infarct finding still present Electronically Signed On 07-04-23 15:05:26 CDT by Rigoberto Rothman
== END 2023-07-03 07:05 | disposition short-term general hospital (02) ==
LOC: ER 04:58
DX: S06.5X9A Traumatic subdural hemorrhage with loss of consciousness of unspecified duration, initial encounter (principal); F10.129 Alcohol abuse with intoxication, unspecified; N28.9 Disorder of kidney and ureter, unspecified; I48.20 Chronic atrial fibrillation, unspecified; Z79.01 Long term (current) use of anticoagulants; W18.30XA Fall on same level, unspecified, initial encounter; Y92.009 Unspecified place in unspecified non-institutional (private) residence as the place of occurrence of the external cause; R29.700 NIHSS score 0; I10 Essential (primary) hypertension; I50.9 Heart failure, unspecified
CPT/HCPCS: 93005; 85025; 80048; 36415; 85610; 82565; 82947; 80076; 85730; 84484; 83880; 70450; 71250; 74176; 96372; 99285; 80143; 80179; 82077; J3411; J1953; J0360; J2765; J2405; J7030

== ENCOUNTER → 2023-12-15 | Emergency (ER) | payer OTHER ==
[~2023-12-15] MED LIST: NA CHLORIDE 0.9% 500 ML ONE
[2023-12-15 18:05] LABS: Absolute Lymphocytes (CBC) 1.2 K/uL (0.7-4.9); Hematocrit 35.1 % (39.6-49.0); MCV 98.5 fL (80-100); Platelets 199 thou/uL (152-406); RBC Red Blood Cell Count 3.56 M/uL (4.33-5.43)
[2023-12-15 18:29] LABS: Albumin 3.6 g/dL (3.4-5.0); Bilirubin Direct 0.2 mg/dL (0-0.2); Bilirubin Indirect, Calculated 0.7 mg/dL (0.2-0.8); Bilirubin Total 0.9 mg/dL (0.2-1.0); Protein, Total 7.7 g/dL (6.4-8.2); Troponin High Sensitivity 8.1 pg/mL (<58.9)
[2023-12-15 18:30] LABS: Potassium 4.1 mEq/L (3.5-5.1)
[2023-12-15 18:54] LABS: Specific Gravity 1.011 (1.005-1.030); Urine Bacteria <20 /HPF (<20); Urine Bilirubin NEGATIVE (Negative); Urine Blood Negative (Negative); Urine Clarity Turbid (Clear); Urine Color Light-Yellow (Yellow); Urine Glucose NEGATIVE (Negative); Urine Mucus Slight /HPF (None Seen); Urine Protein NEGATIVE (Negative); Urine RBC <5 /HPF (None Seen); Urine Urobilinogen Normal (Normal); Urine pH 6.5 (5.0-7.0)
--- NOTE | 2023-12-15 19:01 | ER ---
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 db LOW BP 95/40'S UPON EMS ARRIVAL. PT STATES CHANGED FUROSEMIDE DOSE 3 WEEKS AGO. Coronavirus screen: Vaccine status: Patient reports receiving the 2nd dose of the covid vaccine. Client denies travel out of the [place] in the last 14 days. At this time, the client does not indicate any symptoms associated with coronavirus-19. Ebola Screen: Patient negative for fever greater than or equal to 101.5 degrees Fahrenheit, and additional compatible Ebola Virus Disease symptoms Patient denies exposure to infectious person. Patient denies travel to an Ebola-affected area in the 21 days before illness onset. No symptoms or risks identified at this time. Initial Sepsis Screen: Does the patient meet any 2 criteria? No. Patient's initial sepsis screen is negative. Does the patient have a suspected source of infection? No. Patient's initial sepsis screen is negative. Risk Assessment: Do you want to hurt yourself or someone else? Patient reports no desire to harm self or others. Onset of symptoms was December 12, 2023. 17:04 Method Of Arrival: EMS: [facility] db 17:04 Acuity: EARNEST 2 db Triage Assessment: 17:04 General: Appears in no apparent distress. comfortable, Behavior is calm, cooperative. db Pain: Denies pain. Neuro: Level of Consciousness is awake, alert, obeys commands, Oriented to person, place, time, situation, Reports dizziness. Respiratory: Airway is patent Respiratory effort is even, unlabored, Respiratory pattern is regular, symmetrical. Historical: - Allergies: 17:13 No Known Allergies; db - Home Meds: 17:13 Furosemide Oral [Active]; db - PMHx: 17:13 Atrial Fib; CAD; CHF; Hypertension; Myocardial infarction; db - PSHx: 17:13 Stented artery; db - Immunization history:: Adult Immunizations unknown. - Social history:: Smoking status: Patient denies any tobacco usage or history of. - Family history:: not pertinent. Screenin:04 [facility] ED Fall Risk Assessment (Adult) History of falling in the last 3 months, db including since admission No falls in past 3 months (0 pts) Confusion or Disorientation No (0 pts) Intoxicated or Sedated No (0 pts) Impaired Gait No (0 pts) Mobility Assist Device Used No (0 pt) Altered Elimination No (0 pt) Score/Fall Risk Level 0 - 2 = Low Risk Oriented to surroundings, Maintained a safe environment. Abuse screen: Denies threats or abuse. Denies injuries from another. Nutritional screening: No deficits noted. Tuberculosis screening: No symptoms or risk factors identified. Assessment: 18:03 Reassessment: Patient appears in no apparent distress at this time. Patient and/or db family updated on plan of care and expected duration. Pain level reassessed. Patient is alert, oriented x 3, equal unlabored respirations, skin warm/dry/pink. FAMILY AT BEDSIDE. General: Appears in no apparent distress. comfortable, Behavior is calm, cooperative. Pain: Denies pain. Neuro: Level of Consciousness is awake, alert, obeys commands, Oriented to person, place, time, situation, Speech is normal. 18:05 Reassessment: Patient appears in no apparent distress at this time. FACE HARDENER IS db AT PATIENT BEDSIDE Patient denies pain at this time. Patient states symptoms have improved. 19:05 Reassessment: Patient appears in no apparent distress at this time. Patient and/or db family updated on plan of care and expected duration. Pain level reassessed. Patient is alert, oriented x 3, equal unlabored respirations, skin warm/dry/pink. PATIENT PROVIDED JUICE AND CRACKERS FOR PO CHALLENGE. Vital Signs: 17:04 BP 126 / 79; Pulse 77; Resp 14; Temp 98.2(O); Pulse Ox 100% on R/A; Weight 85.28 kg; db Height 5 ft. 8 in. ; 17:45 BP 121 / 58 Supine; Pulse 67; Resp 18; db 17:50 BP 111 / 65 Sitting; Pulse 73; db 17:55 BP 111 / 88 Standing; Pulse 74; db 18:05 BP 125 / 64; Pulse 72; Resp 18; Pulse Ox 99% ; db 19:00 BP 129 / 86; Pulse 76; Resp 18; Pulse Ox 100% on R/A; db 19:41 BP 141 / 80; Pulse 71; Resp 20; Temp 98.2(TE); Pulse Ox 99% on R/A; Pain 0/10; tm6 17:04 Body Mass Index 28.59 (85.28 kg, 172.72 cm) db 19:41 Pain Scale: Adult tm6 ED Course: 17:04 Arm band placed on Patient placed in an exam room. db 17:11 Patient arrived in ED. db 17:13 Triage completed. db 17:14 Willis Ram MD is Attending Physician. simon 17:23 Janelle Sanchez, DANO is Primary Nurse. db 17:30 Maintain EMS IV. Dressing intact. Good blood return noted. Site clean \T\ dry. Gauge \T\ db site: 22 G LFA. 18:05 Patient has correct armband on for positive identification. Bed in low position. Call db light in reach. Side rails up X 1. Client placed on continuous cardiac and pulse oximetry monitoring. NIBP monitoring applied. 18:13 XRAY Chest (1 view) In Process Unspecified. EDMS 18:25 US Carotid Artery Bilateral In Process Unspecified. EDMS 18:46 CT Head Brain wo Cont In Process Unspecified. EDMS 19:14 Rigoberto Rothman MD is Referral Physician. simon 19:42 Provided Education on: follow up with cinder snapper. tm6 19:42 No provider procedures requiring assistance completed. IV discontinued, intact, tm6 bleeding controlled, No redness/swelling at site. Pressure dressing applied. Administered Medications: 17:27 CANCELLED (Duplicate Order): ns 0.9% 1000 ml IV at 1 bolus Per protocol; 1000 mL bolus simon 17:55 Drug: NS 0.9% IV 500 ml IV at bolus once Route: IV; Rate: bolus; Site: left antecubital;db Medication: 19:42 VIS not applicable for this client. tm6 Outcome: 19:00 Discharge ordered by . simon 19:42 Discharged to home ambulatory, with family, tm6 19:42 Condition: stable 19:42 Discharge instructions given to patient, family, Instructed on discharge instructions, follow up and referral plans. Demonstrated understanding of instructions, follow-up care, 19:43 Patient left the ED. tm6 Signatures: Dispatcher [employer] Willis Hearn MD MD cha Benton, Danielle RN RN Ilya Aguilera RN RN tm6
--- NOTE | 2023-12-15 19:01 | EDPHYS ---
Physician Documentation [facility] Name: Morgan Araujo Age: 73 yrs Sex: Male : 1950 Arrival Date: 12/15/2023 Time: 16:59 Bed 19 Private MD: ED Physician Willis Ram HPI: 12/15 17:23 This 73 yrs old Male presents to ER via EMS with complaints of Dizziness, simon Near Syncope. 17:23 The patient presents with dizziness. Onset: The symptoms/episode began/occurred just simon prior to arrival. 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 Modifying factors: The symptoms are alleviated by lying down, the symptoms are aggravated by standing up. Associated signs and symptoms: Pertinent positives: syncope. Historical: - Allergies: 17:13 No Known Allergies; db - Home Meds: 17:13 Furosemide Oral [Active]; db - PMHx: 17:13 Atrial Fib; CAD; CHF; Hypertension; Myocardial infarction; db - PSHx: 17:13 Stented artery; db - Immunization history:: Adult Immunizations unknown. - Social history:: Smoking status: Patient denies any tobacco usage or history of. - Family history:: not pertinent. ROS: 17:23 Constitutional: Negative for fever, chills, and weight loss, Eyes: Negative for injury, simon pain, redness, and discharge, ENT: Negative for injury, pain, and discharge, Neck: Negative for injury, pain, and swelling, Cardiovascular: Negative for chest pain, palpitations, and edema, Respiratory: Negative for shortness of breath, cough, wheezing, and pleuritic chest pain, Abdomen/GI: Negative for abdominal pain, nausea, vomiting, diarrhea, and constipation, Back: Negative for injury and pain, : Negative for injury, bleeding, discharge, and swelling, MS/Extremity: Negative for injury and deformity, Skin: Negative for injury, rash, and discoloration, Psych: Negative for depression, anxiety, suicide ideation, homicidal ideation, and hallucinations, Allergy/Immunology: Negative for hives, rash, and allergies, Endocrine: Negative for neck swelling, polydipsia, polyuria, polyphagia, and marked weight changes, Hematologic/Lymphatic: Negative for swollen nodes, abnormal bleeding, and unusual bruising, 17:23 Neuro: Positive for dizziness, near syncope, Exam: 17:23 Constitutional: This is a well developed, well nourished patient who is awake, alert, simon and in no acute distress. Head/Face: Normocephalic, atraumatic. Eyes: Pupils equal round and reactive to light, extra-ocular motions intact. Lids and lashes normal. Conjunctiva and sclera are non-icteric and not injected. Cornea within normal limits. Periorbital areas with no swelling, redness, or edema. ENT: Nares patent. No nasal discharge, no septal abnormalities noted. Tympanic membranes are normal and external auditory canals are clear. Oropharynx with no redness, swelling, or masses, exudates, or evidence of obstruction, uvula midline. Mucous membranes moist. Neck: Trachea midline, no thyromegaly or masses palpated, and no cervical lymphadenopathy. Supple, full range of motion without nuchal rigidity, or vertebral point tenderness. No Meningismus. Chest/axilla: Normal chest wall appearance and motion. Nontender with no deformity. No lesions are appreciated. Cardiovascular: Regular rate and rhythm with a normal S1 and S2. No gallops, murmurs, or rubs. Normal PMI, no JVD. No pulse deficits. Respiratory: Lungs have equal breath sounds bilaterally, clear to auscultation and percussion. No rales, rhonchi or wheezes noted. No increased work of breathing, no retractions or nasal flaring. Abdomen/GI: Soft, non-tender, with normal bowel sounds. No distension or tympany. No guarding or rebound. No evidence of tenderness throughout. Back: No spinal tenderness. No costovertebral tenderness. Full range of motion. Male : Normal genitalia with no discharge or lesions. Skin: Warm, dry with normal turgor. Normal color with no rashes, no lesions, and no evidence of cellulitis. MS/ Extremity: Pulses equal, no cyanosis. Neurovascular intact. Full, normal range of motion. Neuro: Awake and alert, GCS 15, oriented to person, place, time, and situation. Cranial nerves II-XII grossly intact. Motor strength 5/5 in all extremities. Sensory grossly intact. Cerebellar exam normal. Normal gait. Psych: Awake, alert, with orientation to person, place and time. Behavior, mood, and affect are within normal limits. 17:57 ECG was reviewed by the Attending Physician. [facility] Vital Signs: 17:04 BP 126 / 79; Pulse 77; Resp 14; Temp 98.2(O); Pulse Ox 100% on R/A; Weight 85.28 kg; db Height 5 ft. 8 in. ; 17:45 BP 121 / 58 Supine; Pulse 67; Resp 18; db 17:50 BP 111 / 65 Sitting; Pulse 73; db 17:55 BP 111 / 88 Standing; Pulse 74; db 18:05 BP 125 / 64; Pulse 72; Resp 18; Pulse Ox 99% ; db 19:00 BP 129 / 86; Pulse 76; Resp 18; Pulse Ox 100% on R/A; db 19:41 BP 141 / 80; Pulse 71; Resp 20; Temp 98.2(TE); Pulse Ox 99% on R/A; Pain 0/10; tm6 17:04 Body Mass Index 28.59 (85.28 kg, 172.72 cm) db 19:41 Pain Scale: Adult tm6 MDM: 17:14 Patient medically screened. simon 17:28 Differential diagnosis: cardiac arrhythmia, CVA, generalized weakness, GI bleed, head simon injury, hypovolemia, idiopathic dizziness, vertigo. Data reviewed: vital signs, nurses notes, EMS record, lab test result(s), EKG, radiologic studies, CT scan, plain films. Consideration of Admission/Observation Escalation of care including admission/observation considered. I considered the following discharge prescriptions or medication management in the emergency department Medications were administered in the Emergency Department. See MAR. Care significantly affected by the following chronic conditions: Hypertension, Congestive Heart Failure, A FIB, CAD. 12/15 17:23 Order name: Basic Metabolic Panel; Complete Time: 18:55 [facility] 12/15 17:23 Order name: CBC with Diff; Complete Time: 18:55 [facility] 12/15 17:23 Order name: LFT's; Complete Time: 18:55 [facility] 12/15 17:23 Order name: Magnesium; Complete Time: 18:55 [facility] 12/15 17:23 Order name: NT PRO-BNP; Complete Time: 18:55 simon 12/15 17:23 Order name: PT-INR; Complete Time: 19:12 simon 12/15 17:23 Order name: Troponin HS; Complete Time: 18:55 [facility] 12/15 17:23 Order name: Urinalysis w/ reflexes; Complete Time: 18:55 [facility] 12/15 17:23 Order name: XRAY Chest (1 view) [facility] 12/15 17:23 Order name: US Carotid Artery Bilateral; Complete Time: 19:13 simon 12/15 17:28 Order name: CT Head Brain wo Cont; Complete Time: 19:12 simon 12/15 17:23 Order name: EKG; Complete Time: 17:24 simon 12/15 17:23 Order name: Cardiac monitoring; Complete Time: 17:48 simon 12/15 17:23 Order name: EKG - Nurse/Tech; Complete Time: 17:48 [facility] 12/15 17:23 Order name: IV Saline Lock; Complete Time: 17:48 [facility] 12/15 17:23 Order name: Labs collected and sent; Complete Time: 17:48 simon 12/15 17:23 Order name: O2 Per Protocol; Complete Time: 17:48 [facility] 12/15 17:23 Order name: O2 Sat Monitoring; Complete Time: 17:48 [facility] 12/15 17:23 Order name: Orthostatics; Complete Time: 18:13 [facility] 12/15 18:01 Order name: Labs - recollect needed: recollect blue top; Complete Time: 18:13 12/15 18:56 Order name: PO challenge; Complete Time: 19:11 [facility] EC:57 Rate is 75 beats/min. Rhythm is irregularly irregular. QRS [place] is Normal. [place] interval simon is normal. QRS interval is normal. QT interval is normal. No Q waves. T waves are Normal. No ST changes noted. Clinical impression: Abnormal EKG without significant change and Atrial Fibrillation. Interpreted by me. Reviewed by me. Administered Medications: 17:27 CANCELLED (Duplicate Order): ns 0.9% 1000 ml IV at 1 bolus Per protocol; 1000 mL bolus [facility] 17:55 Drug: NS 0.9% IV 500 ml IV at bolus once Route: IV; Rate: bolus; Site: left antecubital;db Disposition Summary: 12/15/23 19:00 Discharge Ordered Notes: Location: Home simon Problem: new simon Symptoms: have improved simon Condition: Stable simon Diagnosis - Dizziness and giddiness simon - Syncope Near simon - Persistent atrial fibrillation simon - Unspecified kidney failure - chronic simon - Occlusion and stenosis of bilateral carotid arteries - severe left bulb, moderate simon right - 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 coordinator (current) use of anticoagulants simon Followup: simon - With: Private Physician - When: 2 - 3 days - Reason: Recheck today's complaints, Continuance of care, Re-evaluation by your physician Followup: simon - With: Rigoberto Rothman MD - When: 2 - 3 days - Reason: Recheck today's complaints, Re-evaluation by your physician Discharge Instructions: - Discharge Summary Sheet simon - Dizziness simon - Near-Syncope simon - Syncope simon - Weakness simon - Near-Syncope, Cfgv-[id number] simon - Syncope, Hefx-rl-Dsir simon - Weakness, Ffyd-en-Lury simon - Chronic Kidney Disease, Adult, Pxcb-uh-Cngz simon - Chronic Kidney Disease, Adult simon - Dizziness, Kaep-vs-Chky simon - Carotid Artery Disease simon Forms: - Medication Reconciliation Form simon - Thank You Letter simon - Antibiotic Education simon - Prescription Opioid Use simon - Patient Portal Instructions simon - Leadership Thank You Letter simon Signatures: Dispatcher [employer] EDMS Nevaeh Crow Corey, MD MD cha Benton, Danielle RN RN db Corrections: (The following items were deleted from the chart) 17:27 17:23 NS 0.9% IV 1000 ml IV at 1 bolus Per protocol; 1000 mL bolus ordered. simon montes
[2023-12-15 19:05] LABS: Protime INR 1.64
--- NOTE | 2023-12-15 19:08 | RAD REPORT ---
EXAM DESCRIPTION: CT - Head Brain Wo Cont - 12/15/2023 6:45 pm CLINICAL HISTORY: SYNCOPE COMPARISON: Head Brain Wo Cont dated 07/03/2023; Head Brain Wo Cont dated 01/16/2019 TECHNIQUE: Noncontrast head CT images were obtained without IV contrast. Multiplanar reformats were generated and reviewed. All CT scans are performed using dose optimization technique as appropriate and may include automated exposure control or mA/KV adjustment according to patient size. FINDINGS: No intracranial hemorrhage, mass, or edema. Midline structures are unremarkable. Normal ventricular caliber for age. Encephalomalacia at the left posterior temporal, parasagittal posterior parietal, and occipital regio ns, while the previously demonstrated adjacent extra axial hemorrhage has since resolved. Nevarez-white matter differentiation elsewhere is preserved, without evidence of acute infarct. No abnormal extra-a xial fluid collections although minimal residual thickening suspected along the posterior falx. Mastoid air cells and visualized portions of the paranasal sinuses are clear. No acute bony findings. IMPRESSION: No evidence of an acute intracranial process. Encephalomalacia suggesting sequelae of remote ischemia involving the left occipital lobe and adjacen t parietal temporal lobes.
--- NOTE | 2023-12-15 19:12 | RAD REPORT ---
EXAM DESCRIPTION: US - CP - 12/15/2023 6:23 pm CLINICAL HISTORY: DIZZINESS COMPARISON: MRA Neck W/Wo Cont dated 01/17/2019; Head Brain Wo Cont dated 12/15/2023 TECHNIQUE: Real-time sonographic grayscale, color duplex, and spectral wave Doppler evaluation of suzie th carotid systems was performed. FINDINGS: Normal high resistance waveforms are noted in both external carotid arteries. The common c arotid arteries and internal carotid arteries show normal low resistance waveforms. Moderate bilateral atherosclerotic plaque formation at the carotid bulbs and a right mid to distal IC A are, with severe narrowing on the left. Moderate narrowing seen at the mid to distal ICA. Peak syst olic velocity is elevated on the right, 228 cm/sec, and mildly elevated on the left, 124 cm/sec. ICA/ CCA peak systolic ratio is 2.95 on the right and 1.11 on the left. Antegrade flow seen in both vertebral arteries. IMPRESSION: Severe atherosclerotic luminal narrowing of the left carotid bulb, suggesting near occlu roger. Moderate plaque formation on the right with moderate luminal narrowing, with elevated velocities sugg estive of 50-69% stenosis. Evaluation of carotid artery stenosis, if any, is reported based on consensus recommendations of the Society of Radiologists in Ultrasound (Diallo et al., Radiology, 2003)
--- NOTE | 2023-12-15 19:18 | RAD REPORT ---
EXAM DESCRIPTION: [place] Single View12/15/2023 6:12 pm CLINICAL HISTORY: COUGH COMPARISON: Chest Single View dated 01/16/2019; Chest Pa And Lat (2 Views) dated 02/06/2016; CHEST PA AND LAT 2 VIEW dated 01/13/2016 TECHNIQUE: Portable AP view of the chest. FINDINGS: The lungs are clear. No pneumothorax or effusion. Stable cardiomegaly. Mediastinal contou rs are unremarkable. IMPRESSION: No acute cardiopulmonary process. Stable cardiomegaly.
--- NOTE | 2023-12-16 13:24 | EKG ---
Test Date: 2023-12-15 Test Time: 17:44:09 Food Technologist: YOLIS MEASUREMENT RESULTS: Intervals: Rate: 75 GA: QRSD: 94 QT: 424 QTc: 473 [place]: P: GA: QRS: 49 T: 38 INTERPRETIVE STATEMENTS: Atrial fibrillation Septal infarct, age undetermined Abnormal ECG Compared to ECG 07/03/2023 05:14:01 No significant changes Electronically Signed On 12-16-23 13:21:59 MULTIGRAPHER by Rigoberto Rothman
== END ==
LOC: ER 16:59
DX: R42 Dizziness and giddiness (principal); R55 Syncope and collapse; I48.19 Other persistent atrial fibrillation; I13.0 Hypertensive heart and chronic kidney disease with heart failure and stage 1 through stage 4 chronic kidney disease, or unspecified chronic kidney disease; N18.9 Chronic kidney disease, unspecified; I50.9 Heart failure, unspecified; I65.23 Occlusion and stenosis of bilateral carotid arteries; Z79.01 Long term (current) use of anticoagulants
CPT/HCPCS: 36415; 70450; 71045; 80048; 80076; 81001; 83735; 83880; 84484; 85025; 85610; 93005; 93880; J7040

== ENCOUNTER 2024-07-13 05:46 | Emergency (ER) | payer OTHER ==
[2024-07-13] MEDS ORDERED: NA CHLORIDE 0.9% 500 ML ONE (06:24)
[2024-07-13 06:41] LABS: Absolute Eosinophils 0.2 K/uL (0-0.5); Absolute Lymphocytes (CBC) 1.8 K/uL (0.7-4.9); Absolute Monocytes 1.3 K/uL (0.1-1.3); Absolute Neutrophil 1.9 K/uL (1.8-8.0); Basophils % 0.7 % (0-1.3); Hematocrit 36.5 % (39.6-49.0); Hemoglobin 12.6 g/dL (13.6-17.9); MCH 35.2 pg (27.0-35.0); MCHC 34.6 g/dL (32.0-36.0); MCV 101.8 fL (80-100); Monocytes % 24.4 % (3.3-12.3); Neutrophils % 36.9 % (41.7-73.7); Nucleated Red Blood Cells % 0.1 % (0-0); Platelets 194 thou/uL (152-406); RBC Red Blood Cell Count 3.59 M/uL (4.33-5.43)
[2024-07-13 06:43] LABS: PT Prothrombin Time 16.4 SECONDS (9.4-12.5); Protime INR 1.48
[2024-07-13 06:57] LABS: Albumin 3.7 g/dL (3.4-5.0); Albumin/Globulin Ratio 0.9 (1.1-1.8); Bilirubin Total 0.8 mg/dL (0.2-1.0); Protein, Total 7.7 g/dL (6.4-8.2)
--- NOTE | 2024-07-13 07:04 | EDPHYS ---
Physician Documentation [facility] Name: Morgan Araujo Age: 74 yrs Sex: Male : 1950 Arrival Date: 07/13/2024 Time: 05:46 Bed 16 Private MD: ED Physician Willis Ram HPI: 07/13 06:10 This 74 yrs old Male presents to ER via Wheelchair with complaints of Fall simon Injury, Head Injury-Adult, PT UNSURE OF LOC. 06:10 Details of fall: The patient fell from an upright position, while standing. Onset: The simon symptoms/episode began/occurred just prior to arrival. Associated injuries: The patient sustained injury to the head, neck injury. Severity of symptoms: At their worst the symptoms were mild, in the emergency department the symptoms are unchanged. The patient has experienced a previous episode, last year. Historical: - Allergies: 05:57 No Known Allergies; jb4 - PMHx: 05:57 Atrial Fib; Myocardial infarction; CHF; CAD; Hypertension; jb4 - PSHx: 05:57 Stented artery; hernia repair (Stented artery); jb4 - Immunization history:: Adult Immunizations up to date. - Infectious Disease History:: Denies. - Immunization history: Last tetanus immunization: unknown. - Social history:: Smoking status: Patient denies any tobacco usage or history of. - Family history:: not pertinent. ROS: 06:13 Constitutional: Negative for fever, chills, and weight loss, Eyes: Negative for injury, simon pain, redness, and discharge, ENT: Negative for injury, pain, and discharge, Cardiovascular: Negative for chest pain, palpitations, and edema, Respiratory: Negative for shortness of breath, cough, wheezing, and pleuritic chest pain, Abdomen/GI: Negative for abdominal pain, nausea, vomiting, diarrhea, and constipation, Back: Negative for injury and pain, : Negative for injury, bleeding, discharge, and swelling, MS/Extremity: Negative for injury and deformity, Skin: Negative for injury, rash, and discoloration, Psych: Negative for depression, anxiety, suicide ideation, homicidal ideation, and hallucinations, Allergy/Immunology: Negative for hives, rash, and allergies, Endocrine: Negative for neck swelling, polydipsia, polyuria, polyphagia, and marked weight changes, Hematologic/Lymphatic: Negative for swollen nodes, abnormal bleeding, and unusual bruising, 06:13 Neck: Positive for pain with movement, pain at rest, 06:13 Neuro: Positive for headache, Exam: 06:13 Constitutional: This is a well developed, well nourished patient who is awake, alert, simon and in no acute distress. Head/Face: Normocephalic, atraumatic. Eyes: Pupils equal round and reactive to light, extra-ocular motions intact. Lids and lashes normal. Conjunctiva and sclera are non-icteric and not injected. Cornea within normal limits. Periorbital areas with no swelling, redness, or edema. ENT: Nares patent. No nasal discharge, no septal abnormalities noted. Tympanic membranes are normal and external auditory canals are clear. Oropharynx with no redness, swelling, or masses, exudates, or evidence of obstruction, uvula midline. Mucous membranes moist. Neck: Trachea midline, no thyromegaly or masses palpated, and no cervical lymphadenopathy. Supple, full range of motion without nuchal rigidity, or vertebral point tenderness. No Meningismus. Chest/axilla: Normal chest wall appearance and motion. Nontender with no deformity. No lesions are appreciated. Cardiovascular: Regular rate and rhythm with a normal S1 and S2. No gallops, murmurs, or rubs. Normal PMI, no JVD. No pulse deficits. Respiratory: Lungs have equal breath sounds bilaterally, clear to auscultation and percussion. No rales, rhonchi or wheezes noted. No increased work of breathing, no retractions or nasal flaring. Abdomen/GI: Soft, non-tender, with normal bowel sounds. No distension or tympany. No guarding or rebound. No evidence of tenderness throughout. Back: No spinal tenderness. No costovertebral tenderness. Full range of motion. Male : Normal genitalia with no discharge or lesions. Skin: Warm, dry with normal turgor. Normal color with no rashes, no lesions, and no evidence of cellulitis. MS/ Extremity: Pulses equal, no cyanosis. Neurovascular intact. Full, normal range of motion. Neuro: Awake and alert, GCS 15, oriented to person, place, time, and situation. Cranial nerves II-XII grossly intact. Motor strength 5/5 in all extremities. Sensory grossly intact. Cerebellar exam normal. Normal gait. Psych: Awake, alert, with orientation to person, place and time. Behavior, mood, and affect are within normal limits. 06:54 ECG was reviewed by the Attending Physician. [facility] Vital Signs: 06:03 BP 141 / 66; Pulse 88; Resp 17; Temp 98.2(O); Pulse Ox 100% ; Pain 2/10; rg5 07:19 BP 137 / 71; Pulse 83; Resp 16; Pulse Ox 99% ; dd2 06:03 Pain Scale: Adult rg5 [place] Coma Score: 06:03 Eye Response: spontaneous(4). Motor Response: obeys commands(6). Verbal Response: rg5 oriented(5). Total: 15. Trauma Score (Adult): 06:03 Eye Response: spontaneous(1); Verbal Response: oriented(1); Motor Response: obeys rg5 commands(2); Systolic BP: > 89 mm Hg(4); Respiratory Rate: 10 to 29 per min(4); [place] Score: 15; Trauma Score: 12 MDM: 05:51 Patient medically screened. [facility] 06:14 Differential diagnosis: closed head injury, contusion, fracture, multiple trauma, simon sprain, strain. Data reviewed: vital signs, nurses notes, lab test result(s), radiologic studies, CT scan. Consideration of Admission/Observation Escalation of care including admission/observation considered. I considered the following discharge prescriptions or medication management in the emergency department Medications were administered in the Emergency Department. See MAR. Independent interpretation of the following test(s) in the Emergency Department CT Scan: My interpretation is ct head and c spine. Test considered but Not performed: MRI: no mri brain. Historians other than the Patient: pt good historaian. Care significantly affected by the following chronic conditions: Hypertension, Congestive Heart Failure. 07/13 06:10 Order name: CBC with Diff [facility] 07/13 06:10 Order name: Comprehensive Metabolic Panel; Complete Time: 07:00 [facility] 07/13 06:10 Order name: PT-INR; Complete Time: 06:48 [facility] 07/13 06:44 Order name: Manual Differential EDMS 07/13 05:54 Order name: CT Head C Spine simon EC:54 Rate is 55 beats/min. Rhythm is irregularly irregular. QRS [place] is Normal. [place] interval simon is normal. QRS interval is normal. QT interval is normal. No Q waves. T waves are Normal. No ST changes noted. Clinical impression: Atrial Fibrillation. Interpreted by me. Reviewed by me. Administered Medications: 06:20 Drug: NS 0.9% IV 500 ml IV at bolus once Route: IV; Rate: bolus; Site: left antecubital;rg5 07:05 Follow up: IV Status: Completed infusion; IV Intake: 500ml rg5 Disposition Summary: 07/13/24 07:04 Discharge Ordered Notes: Location: Home simon Problem: new simon Symptoms: have improved simon Condition: Stable simon Diagnosis - Fall on same level, unspecified simon - Unspecified injury of head, initial encounter simon - Strain of muscle, fascia and tendon at neck level simon - Persistent atrial fibrillation simon - alf (current) use of anticoagulants simon Followup: simon - With: Private Physician - When: 2 - 3 days - Reason: Recheck today's complaints, Re-evaluation by your physician Discharge Instructions: - Discharge Summary Sheet simon - Atrial Fibrillation simon - Head Injury, Adult simon - Cervical Sprain simon - Cervical Sprain, Spai-pc-Mkih simon - Head Injury, Adult, Cyms-vf-Cisy simon - Neck Contusion, Sxtn-db-Fcfh simon Forms: - Medication Reconciliation Form simon - Antibiotic Education simon - Prescription Opioid Use simon - Patient Portal Instructions simon - Leadership Thank You Letter [facility] Prescriptions: - acetaminophen-codeine 300-30 mg Oral tablet - take 1 tablet ORAL route every 4-6 hours as needed for pain; 20 tablet; [facility] Refills: 0, Product Selection Permitted - ondansetron 4 mg Oral Tablet,disintegrating - take 1 tablet ORAL route every 8-10 hours as needed for nausea and vomiting; 20 simon tablet; Refills: 0, Product Selection Permitted Signatures: Dispatcher [employer] Willis Hearn MD MD cha Bryson, James, RN RN jb4 Shilo Goldman DO DO ms3 Gabriele Swartz, RN RN rg5
--- NOTE | 2024-07-13 07:04 | ER ---
Nurse's Notes [facility] Name: Morgan Araujo Age: 74 yrs Sex: Male : 1950 Arrival Date: 07/13/2024 Time: 05:46 Bed 16 Private MD: Diagnosis: Fall on same level, unspecified;Unspecified injury of head, initial encounter;Strain of muscle, fascia and tendon at neck level;Persistent atrial fibrillation;snf (current) use of anticoagulants Presentation: 07/13 05:56 Chief complaint: Patient states: I was peeing, fell and hit my head. I am not sure if I jb4 passed out. Coronavirus screen: At this time, the client does not indicate any symptoms associated with coronavirus-19. Ebola Screen: No symptoms or risks identified at this time. Initial Sepsis Screen: Does the patient meet any 2 criteria? No. Patient's initial sepsis screen is negative. Does the patient have a suspected source of infection? No. Patient's initial sepsis screen is negative. Risk Assessment: Do you want to hurt yourself or someone else? Patient reports no desire to harm self or others. Onset of symptoms was July 13, 2024. Transition of care: patient was not received from another setting of care. 05:56 Method Of Arrival: Wheelchair jb4 05:56 Acuity: EARNEST 3 jb4 06:00 Care prior to arrival: None. Mechanism of Injury: Fall standing. Trauma event details: rg5 Injury occurred: at home. 06:00 Activity prior to arrival: None. rg5 Historical: - Allergies: 05:57 No Known Allergies; jb4 - PMHx: 05:57 Atrial Fib; Myocardial infarction; CHF; CAD; Hypertension; jb4 - PSHx: 05:57 Stented artery; hernia repair (Stented artery); jb4 - Immunization history:: Adult Immunizations up to date. - Infectious Disease History:: Denies. - Immunization history: Last tetanus immunization: unknown. - Social history:: Smoking status: Patient denies any tobacco usage or history of. - Family history:: not pertinent. Screenin:00 [facility] ED Fall Risk Assessment (Adult) History of falling in the last 3 months, rg5 including since admission Yes- single mechanical fall (1 pt) Confusion or Disorientation No (0 pts) Intoxicated or Sedated No (0 pts) Impaired Gait No (0 pts) Mobility Assist Device Used No (0 pt) Altered Elimination No (0 pt) Score/Fall Risk Level 0 - 2 = Low Risk Oriented to surroundings, Maintained a safe environment, Educated pt \T\ family on fall prevention, incl call for assistance when getting out of bed, Hourly rounding (assess needs \T\ fall precautionary measures) done. Nutritional screening: No deficits noted. 06:03 Abuse screen: Denies threats or abuse. Tuberculosis screening: No symptoms or risk rg5 factors identified. Primary Survey: 06:00 NO uncontrolled hemorrhage observed. rg5 06:00 A: The client is alert. Breathing/Chest: Spontaneous respiratory effort, equal rg5 unlabored respirations, breath sounds clear bilaterally, regular pattern, symmetrical chest rise and fall. Circulation: No external hemorrhage present. Regular and strong central pulse, skin warm/dry/normal color. Disability Pupils are equal, round, reactive to light and accommodation. Exposure/Environment: neck pain. 06:00 Reassessment Breathing: Spontaneous respiratory effort, equal unlabored respirations, rg5 breath sounds clear bilaterally, regular pattern with symmetrical chest rise and fall. Circulation: No external hemorrhage noted. Regular and strong central pulse, skin warm/dry/normal color. Disability: Pupils Pupils are equal, round, reactive to light and accomodation. Assessment: 06:00 General: Appears in no apparent distress. Behavior is calm, cooperative, appropriate rg5 for age. 06:00 Pain: Complains of pain in base of the skull Pain currently is 2 out of 10 on a pain rg5 scale. Quality of pain is described as aching, Pain began 2 hours ago. Neuro: Level of Consciousness is awake, alert, obeys commands, Oriented to person, place, time. Cardiovascular: Denies chest pain. Respiratory: Airway is patent Trachea midline Respiratory effort is even, unlabored. GI: Abdomen is flat, non-distended. : No signs and/or symptoms were reported regarding the genitourinary system. EENT: No deficits noted. Derm: Skin is intact, Skin is dry, Skin is normal, Skin temperature is warm. Musculoskeletal: Range of motion: intact in all extremities. Vital Signs: 06:03 BP 141 / 66; Pulse 88; Resp 17; Temp 98.2(O); Pulse Ox 100% ; Pain 2/10; rg5 07:19 BP 137 / 71; Pulse 83; Resp 16; Pulse Ox 99% ; dd2 06:03 Pain Scale: Adult rg5 Delilah Coma Score: 06:03 Eye Response: spontaneous(4). Motor Response: obeys commands(6). Verbal Response: rg5 oriented(5). Total: 15. Trauma Score (Adult): 06:03 Eye Response: spontaneous(1); Verbal Response: oriented(1); Motor Response: obeys rg5 commands(2); Systolic BP: > 89 mm Hg(4); Respiratory Rate: 10 to 29 per min(4); Delilah Score: 15; Trauma Score: 12 ED Course: 05:48 Patient arrived in ED. jj6 05:51 Willis Rma MD is Attending Physician. simon 05:54 Gabriele Swartz, RN is Primary Nurse. rg5 05:57 Triage completed. jb4 05:57 Arm band placed on right wrist. jb4 06:00 No provider procedures requiring assistance completed. rg5 06:03 Patient has correct armband on for positive identification. Bed in low position. Call rg5 light in reach. Side rails up X 1. 06:03 Patient maintains SpO2 saturation greater than 95% on room air. rg5 06:15 Inserted saline lock: 20 gauge in left antecubital area, using aseptic technique. Blood rg5 collected. Flushed with 10 mL NS. 06:19 CT Head C Spine In Process Unspecified. EDMS 06:37 Resting quietly. Awaiting lab results, Awaiting radiology results. rg5 07:19 Provided Education on: D/C INFO. dd2 07:19 IV discontinued, intact, bleeding controlled, No redness/swelling at site. Pressure dd2 dressing applied. Administered Medications: 06:20 Drug: NS 0.9% IV 500 ml IV at bolus once Route: IV; Rate: bolus; Site: left antecubital;rg5 07:05 Follow up: IV Status: Completed infusion; IV Intake: 500ml rg5 Medication: 06:00 VIS not applicable for this client. rg5 Intake: 07:05 IV: 500ml; Total: 500ml. rg5 Outcome: 06:13 Patient's length of stay was not longer than 2 hours. rg5 07:04 Discharge ordered by . simon 07:19 Discharged to home ambulatory, dd2 07:19 Condition: stable 07:19 Discharge instructions given to patient, Instructed on discharge instructions, follow up and referral plans. medication usage, Demonstrated understanding of instructions, follow-up care, medications, Prescriptions given X 2, :23 Patient left the ED. dd2 Signatures: Dispatcher [employer] EDWillis Marino MD MD cha Bryson, James, RN RN jb4 Cielo Mesa6 Gabriele Swartz RN RN rg5 EDOUARD SANCHEZ RN RN dd2
[2024-07-13 07:32] VITALS: TEMP 98.2
[2024-07-13 07:42] VITALS: BP 137/71; O2SAT 99
[2024-07-13 07:48] LABS: Band Neutrophils 1 % (0-1); Differential Total Cells Count 100; Lymphocytes 31 % (15-42); Monocytes 34 % (0-10); Platelet Estimate ADEQ; Platelets, Giant NOTED; Segmented Neutrophils 34 % (40-80)
[2024-07-13 07:49] LABS: Blood Morphology Comment NOTED (NOT SEEN); Polychromasia SLIGHT; Spherocyte FEW
--- NOTE | 2024-07-13 10:15 | RAD REPORT ---
EXAM DESCRIPTION: CT - Head C Spine Mpr Wo Con - 07/13/2024 6:53 am CLINICAL HISTORY: The patient is 74 years old and is Male; TRAUMA Bed Name: 16 TECHNIQUE: Axial computed tomography images of the head/brain and cervical spine without intravenous contrast. Sagittal and coronal reformatted images were created and reviewed. This CT exam was pe rformed using one or more of the following dose reduction techniques: automated exposure control, a djustment of the mA and/or kV according to patient size, and/or use of iterative reconstruction techn ique. COMPARISON: 12/15/2023 CT head without contrast FINDINGS: BRAIN: Remote infarct involving the left posterior parietal, occipital, and temporal lob es, with smaller remote infarct involving the posterior superior left parietal lobe, and associated e ncephalomalacia. Bilateral basal ganglia calcifications, nonspecific but most commonly suggestive of poorly co ntrolled hypertension. No extra-axial fluid collection. No intracranial hemorrhage. No acute focal rhodes-white matter differentiation abnormality. MIDLINE SHIFT: No midline shift. VENTRICLES: Unremarkable No ventriculomegaly. SKULL: See below. SINUSES: Unremarkable as visualized. No acute sinusitis. MASTOID AIR CELLS: Unremarkable as visualized. No mastoid effusion. ORBITS: Bilateral lens replacements. VERTEBRAE: Multilevel cervical spondylosis. Straightening of the normal lordosis of the cervical spine as the patient is positioned, like ly secondary to patient's cervical collar. No acute fracture or acute vertebral body height loss. No significant subluxation. DISCS/SPINAL CANAL/NEURAL FORAMINA: No acute findings. No transtentorial herniation. No significant umm spinal canal stenosis. OTHER BONES/JOINTS: Unremarkable as visualized. No fracture of the calvarium or visualized facial bones. SOFT TISSUES: Unremarkable No abnormal prevertebral soft tissue swelling. VASCULATURE: Moderate calcification of the bilateral carotid bulbs. Hyperdense material redemonstrated within the intrahepatic pattern within the posterior super ior sagittal sinus and left greater than right adjacent draining veins, presumably reflecting jessica or other vasoocclusive material. OTHER FINDINGS: Dens is intact. No dislocation. Craniocervical orientation is normal. IMPRESSION: 1. No acute intracranial or cervical spine abnormality. 2. Remote infarct involving the left posterior parietal, occipital, and temporal lobes, with smalle r remote infarct involving the posterior superior left parietal lobe, and associated encephalomalacia . Unchanged. Electronically signed by: Navarro Reynaga MD 07/13/2024 06:45 AM CDT RP Due to temporary technical issues with the PACS/Fluency reporting system, reports are being signed by the in house radiologist without review as a courtesy to ensure prompt reporting. The interpreting r adiologist is fully responsible for the content of the report.
--- NOTE | 2024-07-14 14:09 | EKG ---
Test Date: 2024-07-13 Test Time: 06:49:38 Watch Hairspring Assembler: DELORIS MEASUREMENT RESULTS: Intervals: Rate: 55 AK: QRSD: 98 QT: 426 QTc: 407 [place]: P: AK: QRS: 48 T: 56 INTERPRETIVE STATEMENTS: Atrial fibrillation Septal infarct, age undetermined Abnormal ECG Compared to ECG 12/15/2023 17:44:09 No significant changes Electronically Signed On 07-14-24 14:06:56 CDT by Rigoberto Rothman
== END 2024-07-13 07:23 | disposition home or self-care (01) ==
LOC: ER 05:46
DX: S16.1XXA Strain of muscle, fascia and tendon at neck level, initial encounter (principal); W18.30XA Fall on same level, unspecified, initial encounter; I48.19 Other persistent atrial fibrillation; Z79.01 Long term (current) use of anticoagulants; I10 Essential (primary) hypertension; I25.2 Old myocardial infarction; I50.9 Heart failure, unspecified
CPT/HCPCS: 93005; 85025; 36415; 85610; 80053; 70450; 72125; 96360; 99284; J7040

== ENCOUNTER 2025-08-16 15:05 | Observation (INO) | payer OTHER ==
[2025-08-16] MEDS ORDERED: NA CHLORIDE 0.9% 500 ML ONE (16:26)
[2025-08-16 16:34] LABS: Absolute Lymphocytes (CBC) 0.9 K/uL (0.7-4.9); Hematocrit 30.8 % (39.6-49.0); Hemoglobin 10.8 g/dL (13.6-17.9); MCH 38.9 pg (27.0-35.0); MCHC 35.0 g/dL (32.0-36.0); MCV 111.0 fL (80-100); MPV 8.0 fL (7.6-11.3); Nucleated RBC Absolute Count 0.0 (0-0); Nucleated Red Blood Cells % 0.0 % (0-0); RBC Red Blood Cell Count 2.78 M/uL (4.33-5.43); White Blood Count 4.10 thou/uL (4.3-10.9)
--- NOTE | 2025-08-16 16:54 | RAD REPORT ---
EXAMINATION: ONE VIEW CHEST XR CLINICAL INDICATION: Male, 75 years old.,syncop TECHNIQUE: Frontal chest projection is submitted. Examination is limited by patient positioning and t echnique. COMPARISON: 12/15/2023 FINDINGS: The lungs are well inflated and clear. No pneumothorax or sizable effusion. Stable cardiomegaly. Med iastinal contours are unremarkable. IMPRESSION: No acute intrathoracic abnormalities.
[2025-08-16 16:56] LABS: Anion Gap 10.0 mEq/L (5.0-15.0); BUN Blood Urea Nitrogen 19.0 mg/dL (7-18); Glucose Level 109.0 mg/dL (74-106); Potassium 4.0 mEq/L (3.5-5.1); Troponin High Sensitivity 8.8 pg/mL (<58.9)
--- NOTE | 2025-08-16 17:25 | RAD REPORT ---
EXAM: CT brain without contrast HISTORY: fall, syncope COMPARISON: 07/13/2024 TECHNIQUE: Multiple contiguous axial images were obtained and a CT of the brain without contrast. Sag ittal and coronal reformats were performed. FINDINGS: No evidence of hydrocephalus, intracranial hemorrhage, or extra-axial fluid collection. Stable encephalomalacia involving the left occipital and left lateral and basal temporal lobe. The calvarium is intact. The visualized paranasal sinuses and mastoid air cells are essentially clear . IMPRESSION: No evidence of acute intracranial abnormality. EXAM: CT of the cervical spine without contrast HISTORY: fall, syncope COMPARISON: None TECHNIQUE: Multiple contiguous axial images were obtained in a CT of the cervical spine without contr ast. Sagittal and coronal reformats were performed. FINDINGS: The vertebral bodies demonstrate normal height and alignment. No evidence of acute fracture or subluxation.. Stable multilevel degenerative changes, most pronounced at C5-6 and C6-7, contributing to moderate degrees of neural foraminal narrowing. No prevertebral soft tissue swelling is seen. The posterior facets are well aligned. Normal alignment of the skull base with the cervical spine is seen. The lung apices are unremarkable. IMPRESSION: No evidence of acute osseous abnormality of the cervical spine. Stable degenerative changes as above.
[2025-08-16 17:54] LABS: Blood Morphology Comment NOTED (NOT SEEN); White Blood Cell Scan OK (OK)
[2025-08-16 17:55] LABS: Macrocytosis 1+; Ovalocytes 1+
--- NOTE | 2025-08-16 18:17 | ER ---
Nurse's Notes [facility] Name: Morgan Araujo Age: 75 yrs Sex: Male : 1950 Arrival Date: 08/16/2025 Time: 15:05 Bed 15 Private MD: Diagnosis: Syncope;Atrial Fibrillation Presentation: 08/16 15:33 Chief complaint: Patient states: PASSED OUT PRIOR TO ARRIVAL TO ER, THIS HAS OCCURRED dd2 FREQUENTLY 2-3 WEEKS. PT REPORTS MD SET HIM HERE FOR BLOOD COUNT TO RULE OUT BLEEDING. Coronavirus screen: At this time, the client does not indicate any symptoms associated with coronavirus-19. Ebola Screen: No symptoms or risks identified at this time. Initial Sepsis Screen: Does the patient meet any 2 criteria? No. Patient's initial sepsis screen is negative. Does the patient have a suspected source of infection? No. Patient's initial sepsis screen is negative. Risk Assessment: Do you want to hurt yourself or someone else? Patient reports no desire to harm self or others. Onset of symptoms is unknown. 15:33 Method Of Arrival: Ambulatory dd2 15:33 Acuity: EARNEST 3 dd2 Triage Assessment: 15:35 General: Appears in no apparent distress. uncomfortable, Behavior is calm, cooperative, dd2 appropriate for age. Pain: Denies pain. Cardiovascular: Reports syncope. Historical: - Allergies: 15:35 No Known Allergies; dd2 - PMHx: 15:35 Atrial Fib; CAD; CHF; Hypertension; Myocardial infarction; dd2 - PSHx: 15:35 hernia repair (d ); Stented artery; dd2 - Immunization history:: Adult Immunizations up to date. - Infectious Disease History:: Denies. - Social history:: Smoking status: Patient denies any tobacco usage or history of. Screenin:30 [facility] ED Fall Risk Assessment (Adult) History of falling in the last 3 months, db including since admission No falls in past 3 months (0 pts) Confusion or Disorientation No (0 pts) Intoxicated or Sedated No (0 pts) Impaired Gait No (0 pts) Mobility Assist Device Used No (0 pt) Altered Elimination No (0 pt) Score/Fall Risk Level 0 - 2 = Low Risk Oriented to surroundings, Maintained a safe environment. Abuse screen: Denies threats or abuse. Denies injuries from another. Nutritional screening: No deficits noted. Tuberculosis screening: No symptoms or risk factors identified. Assessment: 17:39 Reassessment: Patient appears in no apparent distress at this time. Patient and/or db family updated on plan of care and expected duration. Pain level reassessed. Patient is alert, oriented x 3, equal unlabored respirations, skin warm/dry/pink. General: Appears in no apparent distress. comfortable, Behavior is calm, cooperative. Neuro: Level of Consciousness is awake, alert, obeys commands, Oriented to person, place, time, situation. Respiratory: Airway is patent Respiratory effort is even, unlabored, Respiratory pattern is regular, symmetrical. 18:20 Reassessment: PT AMBULATORY TO RESTROOM. db 19:12 Reassessment: Patient appears in no apparent distress at this time. Patient and/or kt5 family updated on plan of care and expected duration. Pain level reassessed. Patient is alert, oriented x 3, equal unlabored respirations, skin warm/dry/pink. PT UP AMBULATING TO RR W/O COMPLICATIONS Patient denies pain at this time. Patient states feeling better. Patient states symptoms have improved. 20:04 Reassessment: No changes from previously documented assessment. Patient and/or family kt5 updated on plan of care and expected duration. Pain level reassessed. Patient is alert, oriented x 3, equal unlabored respirations, skin warm/dry/pink. pt eating and drinking w/o complications Patient denies pain at this time. Patient states feeling better. Patient states symptoms have improved. 20:20 Reassessment: pt up ambulating to rr w/o complications. kt5 20:45 Reassessment: Patient appears in no apparent distress at this time. No changes from kt5 previously documented assessment. Patient and/or family updated on plan of care and expected duration. Pain level reassessed. Patient is alert, oriented x 3, equal unlabored respirations, skin warm/dry/pink. Patient states feeling better. Patient states symptoms have improved. Vital Signs: 15:33 BP 91 / 54; Pulse 62; Resp 16; Temp 98.3; Pulse Ox 99% ; Weight 82.1 kg; Height 5 ft. 8 dd2 in. ; Pain 0/10; 16:30 BP 147 / 68; Pulse 74; Resp 16; Pulse Ox 100% on R/A; db 17:30 BP 165 / 75; Pulse 76; Resp 18; Pulse Ox 99% ; db 18:30 BP 149 / 84; Pulse 73; Resp 18; Pulse Ox 100% on R/A; db 19:12 BP 165 / 81; Pulse 76; Resp 18 S; Pulse Ox 98% on R/A; kt5 20:02 BP 151 / 77; Pulse 79; Resp 18 S; Temp 98.3; Pulse Ox 100% on R/A; Pain 0/10; kt5 20:45 BP 148 / 76; Pulse 78; Resp 18; Temp 98.3; Pulse Ox 99% ; Pain 0/10; kt5 15:33 Body Mass Index 27.52 (82.10 kg, 172.72 cm) dd2 15:33 Pain Scale: Adult dd2 20:02 Pain Scale: Adult kt5 20:45 Pain Scale: Adult kt5 ED Course: 15:19 Patient arrived in ED. cj3 15:20 Shilo Goldman DO is Attending Physician. ms3 15:35 Triage completed. dd2 15:35 Arm band placed on right wrist. dd2 15:56 CT Head C Spine In Process Unspecified. EDMS 16:09 Janelle Sanchez, RN is Primary Nurse. db 16:20 No provider procedures requiring assistance completed. db 16:22 XRAY Chest (1 view) In Process Unspecified. EDMS 16:30 Patient has correct armband on for positive identification. Bed in low position. Call db light in reach. Side rails up X 1. Client placed on continuous cardiac and pulse oximetry monitoring. NIBP monitoring applied. media monitor on. Pulse ox on. NIBP on. Warm blanket given. Pillow given. 16:35 Initial lab(s) drawn, by me, sent to lab. EKG done. Inserted saline lock: 20 gauge in db right antecubital area, using aseptic technique. Blood collected. Flushed with 10 mL NS. 18:15 Juni Taylor MD is Hospitalizing Provider. ms3 19:12 Carmen Vila, DANO is Primary Nurse. kt5 20:18 Provided Education on: admission. kt5 Administered Medications: 16:30 Drug: NS 0.9% IV 500 ml 500 ml IV at 1 bolus once; to be given as a bolus over 30 db minutes Volume: 500 ml; Route: IV; Rate: 1 bolus; Site: right antecubital; 19:02 Follow up: Response: No adverse reaction; IV Status: Completed infusion; IV Intake: db 500ml 20:04 Follow up: Response: No adverse reaction; IV Status: Completed infusion; IV Intake: kt5 500ml Medication: 17:41 VIS not applicable for this client. db Intake: 19:02 IV: 500ml; Total: 500ml. db 20:04 IV: 500ml; Total: 1000ml. kt5 Outcome: 18:17 Decision to Hospitalize by Provider. ms3 21:02 Patient left the ED. kt5 Signatures: Dispatcher [employer] EDMS Shilo Goldman DO DO ms3 Janelle Sanchez RN RN db EDOUARD SANCHEZ RN RN dd2 Cira Davis cj3 Carmen Vila, RN RN kt5
--- NOTE | 2025-08-16 18:17 | EDPHYS ---
Physician Documentation [facility] Name: Morgan Araujo Age: 75 yrs Sex: Male : 1950 Arrival Date: 08/16/2025 Time: 15:05 Bed 15 Private MD: ED Physician Shilo Goldman HPI: 08/16 16:52 This 75 yrs old Male presents to ER via Ambulatory with complaints of Passed Out Prior ms3 To Arrival, Dizziness. 16:52 75-year-old male with past medical history of atrial fibrillation, coronary artery ms3 disease, congestive heart failure, hypertension, myocardial infarction presents to the emergency department after episodes of syncope and falling that been ongoing for the last 2 years. Patient states over the last 2 to 3 months his symptoms have become worse. Patient was recently hospitalized for stent placement and his physician is concerned about internal bleeding and would like his hemoglobin checked. Patient denies dizziness, chest pain, shortness of breath, nausea, vomiting. Patient states his last fall was yesterday.. Historical: - Allergies: 15:35 No Known Allergies; dd2 - PMHx: 15:35 Atrial Fib; CAD; CHF; Hypertension; Myocardial infarction; dd2 - PSHx: 15:35 hernia repair (d ); Stented artery; dd2 - Immunization history:: Adult Immunizations up to date. - Infectious Disease History:: Denies. - Social history:: Smoking status: Patient denies any tobacco usage or history of. ROS: 16:52 Constitutional: Negative for fever, and chills. Cardiovascular: Negative for chest ms3 pain, and palpitations. Respiratory: Negative for shortness of breath, cough, wheezing, and pleuritic chest pain, Abdomen/GI: Negative for abdominal pain, nausea, vomiting, diarrhea, and constipation, 16:52 Neuro: Positive for syncope, Exam: 16:52 Constitutional: This is a well developed, well nourished patient who is awake, alert, ms3 and in no acute distress. Chest/axilla: Normal chest wall appearance and motion. Nontender with no deformity. Respiratory: Lungs have equal breath sounds bilaterally, clear to auscultation and percussion. No rales, rhonchi or wheezes noted. No increased work of breathing, no retractions or nasal flaring. Abdomen/GI: Soft, non-tender, with normal bowel sounds. No distension or tympany. No guarding or rebound. No evidence of tenderness throughout. Skin: Warm, dry with normal turgor. Normal color with no rashes, no lesions, and no evidence of cellulitis. 16:52 Cardiovascular: Rate: normal, Rhythm: irregularly irregular, Pulses: no pulse deficits are appreciated, Heart sounds: normal, normal S1and S2, 16:52 ECG was reviewed by the Attending Physician. Vital Signs: 15:33 BP 91 / 54; Pulse 62; Resp 16; Temp 98.3; Pulse Ox 99% ; Weight 82.1 kg; Height 5 ft. 8 dd2 in. ; Pain 0/10; 16:30 BP 147 / 68; Pulse 74; Resp 16; Pulse Ox 100% on R/A; db 17:30 BP 165 / 75; Pulse 76; Resp 18; Pulse Ox 99% ; db 18:30 BP 149 / 84; Pulse 73; Resp 18; Pulse Ox 100% on R/A; db 19:12 BP 165 / 81; Pulse 76; Resp 18 S; Pulse Ox 98% on R/A; kt5 20:02 BP 151 / 77; Pulse 79; Resp 18 S; Temp 98.3; Pulse Ox 100% on R/A; Pain 0/10; kt5 20:45 BP 148 / 76; Pulse 78; Resp 18; Temp 98.3; Pulse Ox 99% ; Pain 0/10; kt5 15:33 Body Mass Index 27.52 (82.10 kg, 172.72 cm) dd2 15:33 Pain Scale: Adult dd2 20:02 Pain Scale: Adult kt5 20:45 Pain Scale: Adult kt5 MDM: 15:30 Medical Screening Exam initiated ms3 16:52 Differential Diagnosis: cardiac arrhythmia, idiopathic syncope, anemia. ms3 18:12 Data reviewed: vital signs, nurses notes, lab test result(s), EKG, radiologic studies, ms3 and as a result, I will admit patient. Consideration of Admission/Observation Patient was admitted/placed on observation. Management of patient was discussed with the following: Hospitalist: Dat. I considered the following discharge prescriptions or medication management in the emergency department Medications were administered in the Emergency Department. See MAR. Independent interpretation of the following test(s) in the Emergency Department EKG: See my EKG interpretation above CT Scan: My interpretation is CT head without contrast images reviewed by me do not reveal ICH. Counseling: I had a detailed discussion with the patient and/or guardian regarding the historical points, exam findings, and any diagnostic results supporting the discharge/admit diagnosis, lab results, radiology results, the need for further work-up and treatment in the hospital. ED course: Discussed labs, EKG, imaging with patient. Patient agrees with observation. All questions were answered.. 08/16 15:31 Order name: Basic Metabolic Panel; Complete Time: 17:49 ms3 08/16 15:31 Order name: CBC with Diff; Complete Time: 18:32 ms3 08/16 15:31 Order name: Troponin HS; Complete Time: 17:49 ms3 08/16 16:38 Order name: CBC Smear Scan; Complete Time: 18:32 EDMS 08/16 19:26 Order name: Ferritin EDMS 08/16 19:26 Order name: Transferrin Sat/Iron Binding EDMS 08/16 19:26 Order name: Vitamin B12 Level EDMS 08/16 19:30 Order name: CBC with Automated Diff EDMS 08/16 19:30 Order name: CBC with Automated Diff EDMS 08/16 19:30 Order name: CBC with Automated Diff EDMS 08/16 19:30 Order name: Comprehensive Metabolic Panel EDMS 08/16 19:30 Order name: Comprehensive Metabolic Panel EDMS 08/16 19:30 Order name: Comprehensive Metabolic Panel EDMS 08/16 19:30 Order name: Magnesium EDMS 08/16 19:30 Order name: Magnesium EDMS 08/16 19:30 Order name: Magnesium EDMS 08/16 19:35 Order name: VITAMIN B1-THIAMINE (WB) EDMS 08/16 15:31 Order name: XRAY Chest (1 view); Complete Time: 17:49 ms3 08/16 15:31 Order name: CT Head C Spine; Complete Time: 17:49 ms3 08/16 15:31 Order name: EKG; Complete Time: 15:31 ms3 08/16 15:31 Order name: Cardiac monitoring; Complete Time: 17:01 ms3 08/16 15:31 Order name: EKG - Nurse/Tech; Complete Time: 17:01 ms3 08/16 15:31 Order name: IV Saline Lock; Complete Time: 17:01 ms3 08/16 15:31 Order name: Labs collected and sent; Complete Time: 17:01 ms3 08/16 15:31 Order name: O2 Per Protocol; Complete Time: 17: ms3 08/16 15:31 Order name: O2 Sat Monitoring; Complete Time: 17: ms3 EC:52 Rate is 72 beats/min. Rhythm is irregularly irregular. QRS [place] is Normal. Clinical ms3 impression: Atrial Fibrillation. Interpreted by me. Reviewed by me. Administered Medications: 16:30 Drug: NS 0.9% IV 500 ml 500 ml IV at 1 bolus once; to be given as a bolus over 30 db minutes Volume: 500 ml; Route: IV; Rate: 1 bolus; Site: right antecubital; 19:02 Follow up: Response: No adverse reaction; IV Status: Completed infusion; IV Intake: db 500ml 20:04 Follow up: Response: No adverse reaction; IV Status: Completed infusion; IV Intake: kt5 500ml Disposition Summary: 08/16/25 18:17 Hospitalization Ordered Notes: Hospitalization Status: Observation ms3 Provider: Juni Taylor ms3 Location: Telemetry/MedSurg (observation) ms3 Condition: Stable ms3 Problem: new ms3 Symptoms: are unchanged ms3 Bed/Room Type: Standard ms3 Room Assignment: 401(08/16/25 19:36) kl Diagnosis - Syncope ms3 - Atrial Fibrillation ms3 Forms: - Medication Reconciliation Form ms3 - SBAR form ms3 - Leadership Thank You Letter ms3 Signatures: Dispatcher [employer] Susy Ceja RN RN kl Sims, Marcus, DO DO ms3 Janelle Sanchez RN RN db DAVIS, DIANA, RN RN dd2 Carmen Vila RN RN kt5 Corrections: (The following items were deleted from the chart) 19:36 18:17 ms3 kl
[2025-08-16] MEDS: THIAMINE 200 MG/2 ML INJ IVP ONE (19:29)
--- NOTE | 2025-08-16 19:40 | P.HP ---
Certification for Inpatient Patient admitted to: Observation With expected LOS: <2 Midnights Patient will require the following post-hospital care: None Practitioner: I am a practitioner with admitting privileges, knowledge of patient current condition, hospital course, and medical plan of care. Services: Services provided to patient in accordance with Admission requirements found in Title 42 Section 412.3 of the Code of Federal Regulations Patient History Date of Service: 08/16/25 Reason for admission: JONATHAN, Syncope, Hypotensive, Anemia History of Present Illness: Patient is a pleasant 75-year-old male with past medical history of anemia of unknown etiology, CAD, CHF, myocardial infarction with cardiac stent placement 1 month ago, A-cedric, who reports to the ER complaining of dizziness, syncope, and was sent by his PCP with concern of possible GI bleed, needing more workup. Patient states he has had history of dizziness for the past 2 years, but states within the past 5 days his dizziness have progressively worsening, without any associated chest pain, shortness of breath, or headaches. Patient has history of anemia with unknown etiology at this time, his PCP recommended for him to go to ER for further workup. During admission assessment, patient was fully awake, alert and oriented x 3, denies of any dizziness at this time, headaches, nausea or vomiting, chest pain, or shortness of breath. Patient significant other present at bedside states that patient drinks alcohol heavily, and does not drink water. Patient on arrival to ER was hypotensive, and after receiving 500 mL normal saline, his blood pressure was normotensive. Patient BUN 19, creatinine 1.42, GFR 53, inquired from the patient if he has any history of kidney disease and patient states no. It is very difficult to ascertain if patient part dizziness is from dehydration, or excessive alcohol intake, or some other pathology. Patient denies of any abdominal pain. Patient H&H is 10.8/30.8. Patient significant other present at bedside, showed a report on her phone of an echo that was recently done at [facility] in [place] and states patient has mitral valve leakage, and the plan is to repeat an echo on patient next visit. Patient also had carotid Doppler recently done in [place] as well. Patient and significant other states that they would prefer to have patient see a instrument calibrator in [facility] since that is where all his doctors are located. Order anemia workup on admission, Iron 186, TIBC 325, transferritin 232, ferritin 178.1, vitamin B12 263 results not significant for the cause of patient anemia. Would have preferred to have patient seen by GI doctor but unfortunately there is no GI on-schedule . Course in ER. (1) CT head/cervical spine. Impression: No evidence of acute intracranial abnormality. (2) chest x-ray. Impression: No acute intrathoracic abnormalities. Allergies No Known Allergies Allergy (Verified 06/04/17 09:58) Home Medications: Metoprolol Succinate [Toprol Xl] 200 mg PO DAILY 01/16/19 Aspirin 81 mg PO DAILY #30 tab.chew 01/19/19 Clopidogrel Bisulfate [Plavix*] 75 mg PO DAILY #30 tablet 01/19/19 Metoprolol Tartrate [Lopressor*] 50 mg PO BID #60 tab 01/19/19 Tamsulosin [Flomax] 0.4 mg PO DAILY #30 cap 01/19/19 chlordiazePOXIDE HCl [Librium*] 10 mg PO Q12H #30 cap 01/19/19 Apixaban [Eliquis] 5 mg PO BID 08/17/25 Duloxetine HCl 30 mg PO DAILY 08/17/25 Furosemide 20 mg PO M,W,F 08/17/25 Levocetirizine Dihydrochloride [Allergy Relief] 5 mg PO DAILY 08/17/25 Magnesium Glycinate 400 mg PO DAILY 08/17/25 Magnesium l-Threonate/Vit C/D3 [Magnesium b-Ixgbenmau-G-D3 Cap] 1 each PO DAILY 08/17/25 Memantine HCl 10 mg PO BID 08/17/25 Montelukast Sodium 10 mg PO DAILY 08/17/25 Ramelteon 8 mg PO DAILY 08/17/25 Rosuvastatin Calcium 20 mg PO DAILY 08/17/25 Valsartan 80 mg PO BID 08/17/25 carvediloL [Carvedilol] 6.25 mg PO BID 08/17/25 tadalafiL [Tadalafil] 5 mg PO DAILY 08/17/25 - Past Medical/Surgical History Diabetic: No -: [place] -: AFIB -: CAD -: Anemia. -: HTN -: CHF -: 2 cardiac stents placed -: hernia repair -: Right knee surgery -: back surgery - Family History Mother -: Cancer Notes: Father -: Cancer Notes: - Social History Smoking Status: Former smoker Alcohol use: Yes CD- Drugs: Yes Caffeine use: No Place of Residence: Home Review of Systems 10-point ROS is otherwise unremarkable General: Other (Multiple Falls, Dizziness) Physical Examination - Physical Exam General: Alert, Oriented x3, Cooperative HEENT: Atraumatic, Normocephalic, PERRLA Neck: Supple, 2+ carotid pulse no bruit, JVD not distended, No Thyromegaly, No LAD, Without JVD or thyroid abnormality Respiratory: Clear to auscultation bilaterally, Normal air movement Cardiovascular: No edema, Irregular heart rate/rhythm (Hx of Afib) Capillary refill: <2 Seconds Gastrointestinal: Normal bowel sounds, Hypoactive, Soft and benign, Non- distended, W/out hepatomegaly, No ascites Musculoskeletal: No clubbing, No swelling, No contractures, No erythema, No tenderness, No warmth Integumentary: No rashes, No breakdown, No significant lesion, No tenderness/swelling, No erythema, No warmth, No cyanosis Neurological: Normal gait, Normal speech, Normal strength at 5/5 x4 extr, Normal tone, Sensation intact, Cranial nerves 3-12 intact, Normal reflexes 2+, Normal affect Lymphatics: No axilla or inguinal lymphadenopathy - Studies Laboratory Data (last 24 hrs) 08/16/25 08/16/25 16:19 16:19 WBC 4.10 L Hgb 10.8 L Hct 30.8 L Plt Count 183 Sodium 133 L Potassium 4.0 BUN 19 H Creatinine 1.42 H Glucose 109 H Male Exam - Male Exam Inguinal exam: No hernias Assessment and Plan - Plan Patient admitted to observation with diagnosis of dizziness, JONATHAN, hypotensive, syncope, anemia. (1)Dizziness, syncope, JONATHAN and hypotensive. Patient hypotensive on arrival to ER. -IV NS at 50 mL/ hr x 1 L.. Order for slow infusion due to his history of CHF. -Consult surgical corsetier. -Meclizine 25 mg p.o. as needed every 6 hours. -Follow-up CMP in the morning. -Consult physical therapy. -Patient CT of the head and cervical spine negative for any acute process. Would have ordered MRI of the head/ brain, but patient currently has a chest cardiac application monitor which is not due to be removed until Wednesday, making it impossible for the MRI to be done at this time. -Hold patient blood pressure medications at this time until blood pressure normalized and sustained. (2)Anemia of unknown etiology. - Would have preferred to consult GI, but unfortunately there is no GI scheduled today. Patient and significant other hasve opted to have follow-up GI done at [facility] in [place]. -Order anemia workup, results are normal and no significant for the cause of patient anemia. Patient iron is 186, TIBC 325, transferrin 232, ferritin 178.1, vitamin B12 263. (3)Chronic atrial fibrillation. - Continue on Eliquis 5 mg p.o. twice daily. -Telemetry. (4)Chronic alcohol use disorder. According to significant other present at bedside, states patient drinks alcohol heavily daily. - Order thiamine 100 mg IV x 1, follow daily dose of thiamine 100 mg p.o. daily. - Order folic acid 1 mg p.o. daily. (5)Explained entire treatment plan to the patient, significant other present at bedside, solicited questions answered and voiced understanding. Took additional time to teach patient on the importance of adequate amount of p.o. water intake daily to sustain his kidneys but also helps prevent volume depletion which might be causing his dizziness, voiced understanding and promise to drink adequate amount of water.. Discharge Plan: Home Plan to discharge in: 48 Hours - Advance Directives Does patient have a Living Will: No Does patient have a Durable POA for Healthcare: No - Code Status/Comfort Care Code Status Assessed: Yes Code Status: Full Code Critical Care: No Time Spent Managing Pts Care (In Minutes): 55
[2025-08-16] MEDS: NA CHLORIDE 0.9% 1,000 ML IV SCH (21:33)
[2025-08-16] MEDS: APIXABAN 5 MG TABLET PO SCH (21:33)
[2025-08-16 21:35] VITALS: BMI 27.5
[2025-08-16 21:42] VITALS: O2SAT 99
[2025-08-17 00:01] LABS: Ferritin 178.1 ng/mL (26-388); Transferrin 232.0 mg/dL (200-360)
[2025-08-17 00:02] LABS: Iron 186.0 ug/dL (65-175)
[2025-08-17] MEDS: ACETAMINOPHEN 325 MG TABLET PO PRN (04:03)
[2025-08-17] MEDS ORDERED: MECLIZINE HCL 12.5 MG TAB PO PRN (04:28)
[2025-08-17 07:15] LABS: Absolute Lymphocytes (CBC) 1.1 K/uL (0.7-4.9); Hematocrit 27.6 % (39.6-49.0); Hemoglobin 9.6 g/dL (13.6-17.9); MCH 38.7 pg (27.0-35.0); MCHC 34.9 g/dL (32.0-36.0); MCV 110.7 fL (80-100); MPV 8.3 fL (7.6-11.3); Nucleated RBC Absolute Count 0.0 (0-0); Nucleated Red Blood Cells % 0.1 % (0-0); RBC Red Blood Cell Count 2.49 M/uL (4.33-5.43); White Blood Count 3.40 thou/uL (4.3-10.9)
[2025-08-17 07:35] LABS: ALT/SGPT 32.0 U/L (16-61); AST/SGOT 30.0 U/L (15-37); Albumin 3.3 g/dL (3.4-5.0); Albumin/Globulin Ratio 1.0 (1.1-1.8); Alkaline Phosphatase 64.0 U/L (45-117); Anion Gap 8.9 mEq/L (5.0-15.0); BUN Blood Urea Nitrogen 18.0 mg/dL (7-18); Globulin 3.2 g/dL (2.3-3.5); Glucose Level 111.0 mg/dL (74-106); Magnesium 2.0 mg/dL (1.6-2.4); Potassium 3.9 mEq/L (3.5-5.1)
[2025-08-17 08:53] VITALS: BP 132/75; TEMP 98.2
[2025-08-17] MEDS: TADALAFIL 5 MG PO SCH (09:00)
[2025-08-17] MEDS: MAGNESIUM PO SCH (09:00)
[2025-08-17] MEDS: [UNRECOGNIZED DRUG - OTHER] PO SCH (09:00)
[2025-08-17] MEDS ORDERED: VALSARTAN 80 MG TAB PO SCH (09:00)
[2025-08-17] MEDS ORDERED: HOME MED 1 EA UNK (Levocetirizine Dihydrochloride [Allergy Relief] 5 MG Tablet) PO SCH (09:00)
[2025-08-17] MEDS: MAGNESIUM GLYCINATE 100 MG PO SCH (09:00)
[2025-08-17] MEDS ORDERED: HOME MED 1 EA UNK (Ramelteon [Ramelteon] 8 MG Tablet) PO SCH (09:00)
[2025-08-17] MEDS: ROSUVASTATIN 10 MG TAB PO SCH (09:15)
[2025-08-17] MEDS: TAMSULOSIN 0.4 MG SR CAP PO SCH (09:16)
[2025-08-17] MEDS: THIAMINE HCL 100 MG TABLET PO SCH (09:16)
[2025-08-17] MEDS: FOLIC ACID 1 MG TABLET PO SCH (09:16)
[2025-08-17] MEDS: MEMANTINE HCL 10 MG TABLET PO SCH (09:16)
[2025-08-17] MEDS: DULOXETINE 30 MG CAP PO SCH (09:16)
[2025-08-17] MEDS: CLOPIDOGREL 75 MG TABLET PO SCH (09:16)
[2025-08-17] MEDS: LORATADINE 10 MG TAB PO SCH (09:17)
[2025-08-17] MEDS: MONTELUKAST 10 MG TAB PO SCH (09:50)
--- NOTE | 2025-08-17 11:59 | RAD REPORT ---
EXAMINATION: US CAROTID DUPLEX CLINICAL INDICATION: , 75 years old. syncope. TECHNIQUE: Real-time grayscale, color flow and spectral Doppler sonographic images were obtained of t extracranial carotid system using a linear transducer. [id number]. COMPARISON: 12/15/2023 FINDINGS: RIGHT: Common carotid artery: 83 cm/s Internal carotid artery: 169 cm/s. Right carotid stent. External carotid artery: 83 cm/s Right ICA/CCA ratio: 2.0 Plaque present Vertebral artery Antegrade LEFT: Common carotid artery: 114 cm/s Internal carotid artery: 216 cm/s External carotid artery: 146 cm/s lEFT ICA/CCA ratio: 1.9 Plaque Moderate Calcified and noncalcified Vertebral artery Antegrade IMPRESSION: Right carotid stent with elevated PSV beyond the stent would suggest a moderate stenosis. Elevated left ICA PSV which would suggest a moderate 70-80% stenosis but this is probably related to vessel tortuosity rather than a true stenosis.
--- NOTE | 2025-08-17 15:04 | P.DS ---
Admission Date: 08/16/25 Discharge Date: 08/17/25 Disposition: ROUTINE DISCHARGE Discharge Condition: GOOD Reason for Admission: JONATHAN, Syncope, Hypotensive, Anemia Hospital Course: Patient is a 75-year-old male with known history of coronary artery disease status post PCI few weeks ago, carotid artery stenosis status post right carotid artery stent. He was admitted after he presented with syncope. Patient has orthostatic hypotension. He is also on tamsulosin for BPH. Carotid Doppler revealed significant narrowing of the left ICA. Cardiology evaluated patient. We have opted to manage conservatively without midodrine. Patient was educated on maneuvers especially upon standing, and the use of compression stockings. Son was at bedside when these instructions were given. Vital Signs/Physical Exam: Temp Pulse Resp BP Pulse Ox 98.2 F 74 17 132/75 96 08/17/25 08:00 08/17/25 08:00 08/17/25 08:00 08/17/25 08:00 08/17/25 08:00 General: Alert, In no apparent distress, Cooperative HEENT: Atraumatic, Normocephalic Respiratory: Clear to auscultation bilaterally, Normal air movement Cardiovascular: No edema, Normal pulses, Regular rate/rhythm, Normal S1 S2 Musculoskeletal: No clubbing, No swelling, No contractures, No erythema, No tenderness, No warmth Neurological: Normal speech Laboratory Data at Discharge: WBC 3.40 thou/uL (4.3-10.9) L 08/17/25 06:38 Hgb 9.6 g/dL (13.6-17.9) L D 08/17/25 06:38 Hct 27.6 % (39.6-49.0) L 08/17/25 06:38 Plt Count 147 thou/uL (152-406) L 08/17/25 06:38 Sodium 137 mEq/L (136-145) D 08/17/25 06:38 Potassium 3.9 mEq/L (3.5-5.1) 08/17/25 06:38 BUN 18 mg/dL (7-18) 08/17/25 06:38 Creatinine 1.07 mg/dL (0.70-1.30) 08/17/25 06:38 Glucose 111 mg/dL (74-106) H 08/17/25 06:38 Magnesium 2.0 mg/dL (1.6-2.4) 08/17/25 06:38 Total Bilirubin 0.5 mg/dL (0.2-1.0) 08/17/25 06:38 AST 30 U/L (15-37) 08/17/25 06:38 ALT 32 U/L (16-61) 08/17/25 06:38 Alkaline Phosphatase 64 U/L (45-117) 08/17/25 06:38 Home Medications: Tamsulosin [Flomax*] 0.4 mg PO DAILY #30 cap 01/19/19 chlordiazePOXIDE HCl [Librium*] 10 mg PO Q12H #30 cap 01/19/19 Apixaban [Eliquis] 5 mg PO BID 08/17/25 Apixaban [Eliquis] 5 mg PO BID 08/17/25 Duloxetine HCl 30 mg PO DAILY 08/17/25 Levocetirizine Dihydrochloride [Allergy Relief] 5 mg PO DAILY 08/17/25 Magnesium Glycinate 400 mg PO DAILY 08/17/25 Magnesium l-Threonate/Vit C/D3 [Magnesium p-Hvgnbmswd-P-D3 Cap] 1 each PO DAILY 08/17/25 Memantine HCl 10 mg PO BID 08/17/25 Montelukast Sodium 10 mg PO DAILY 08/17/25 Ramelteon 8 mg PO DAILY 08/17/25 Rosuvastatin Calcium 20 mg PO DAILY 08/17/25 Thiamine HCl [Vitamin B-1*] 100 mg PO DAILY 08/17/25 Valsartan [Diovan*] 40 mg PO BID #60 tab 08/17/25 carvediloL [Carvedilol] 6.25 mg PO BID 08/17/25 tadalafiL [Tadalafil] 5 mg PO DAILY 08/17/25 New Medications: Valsartan [Diovan*] 40 mg PO BID #60 tab Followup: Sheldon DO,Danielle Tellez DO [ACTIVE - CAN ADMIT] - NONE,NONE [Primary Care Provider] -
--- NOTE | 2025-08-17 18:19 | P.CNS ---
Date of Consult: 08/17/25 Reason for Consult: Syncope Requesting Physician: Prince Austyn Enriquez Chief Complaint: JONATHAN, Syncope, Hypotensive, Anemia History of Present Illness: 75-year-old male with PMH alcoholism (drinks 1 pint vodka daily), former smoker, anemia, BPH, AF (on apixaban), CAD/CO s/p PCI (2009), recurrent syncopal episodes, bilateral carotid artery stenosis s/p recent L AZEEM (07/2025 in [place]; Dr. Nesbitt), who presents for further evaluation of dizziness/lightheadedness, syncope, and possible GI bleed. Patient's son at bedside. Patient reports several episodes of syncope in the past, which occur at least once a week for the past 2 years. During these episodes his blood pressure is noted to be low. Denies any prior evaluation with tilt table test. Endorses lightheadedness/dizziness upon standing. Recent blood work showed anemia, and his physician recommended hospitalization for workup of GI bleed. Labs showed hemoglobin 10.8. Creatinine 1.42. ECG showed rate controlled atrial fibrillation. CXR showed no acute intrathoracic abnormalities. CT brain showed no evidence of acute intracranial abnormality. Bilateral carotid arterial duplex showed a patent left CCA/ICA stent, and elevated PSVs bilaterally. Orthostatic vital signs were positive. Patient follows up with a cable technician in [place], Dr. Land for his cardiovascular care and Dr. Nesbitt for vascular surgery. Allergies No Known Allergies Allergy (Verified 06/04/17 09:58) Home medications list reviewed: Yes Home Medications: Tamsulosin [Flomax*] 0.4 mg PO DAILY #30 cap 01/19/19 chlordiazePOXIDE HCl [Librium*] 10 mg PO Q12H #30 cap 01/19/19 Apixaban [Eliquis] 5 mg PO BID 08/17/25 Apixaban [Eliquis] 5 mg PO BID 08/17/25 Duloxetine HCl 30 mg PO DAILY 08/17/25 Levocetirizine Dihydrochloride [Allergy Relief] 5 mg PO DAILY 08/17/25 Magnesium Glycinate 400 mg PO DAILY 08/17/25 Magnesium l-Threonate/Vit C/D3 [Magnesium k-Ozetskffq-D-D3 Cap] 1 each PO DAILY 08/17/25 Memantine HCl 10 mg PO BID 08/17/25 Montelukast Sodium 10 mg PO DAILY 08/17/25 Ramelteon 8 mg PO DAILY 08/17/25 Rosuvastatin Calcium 20 mg PO DAILY 08/17/25 Thiamine HCl [Vitamin B-1*] 100 mg PO DAILY 08/17/25 Valsartan [Diovan*] 40 mg PO BID #60 tab 08/17/25 carvediloL [Carvedilol] 6.25 mg PO BID 08/17/25 tadalafiL [Tadalafil] 5 mg PO DAILY 08/17/25 - Past Medical/Surgical History Diabetic: No -: CO -: AFIB -: CAD -: Anemia. -: HTN -: CHF -: Coronary artery stenosis -: 2 cardiac stents placed -: hernia repair -: Right knee surgery -: back surgery -: Left carotid artery stenting - Family History Mother Medical History: Cancer Notes: Father Medical History: Cancer Notes: - Social History Alcohol use: Yes CD- Drugs: Yes Caffeine use: No Place of Residence: Home Physical Examination Temp Pulse Resp BP Pulse Ox 98.2 F 74 17 132/75 96 08/17/25 08:00 08/17/25 08:00 08/17/25 08:00 08/17/25 08:00 08/17/25 08:00 General: Alert, In no apparent distress, Oriented x3 Neck: JVD not distended, Bruit Respiratory: Clear to auscultation bilaterally Cardiovascular: No edema, Normal S1 S2, No murmurs, Irregular heart rate/rhythm Capillary refill: <2 Seconds Gastrointestinal: Normal bowel sounds Musculoskeletal: No clubbing, No swelling Integumentary: No rashes Neurological: Normal speech Reviewed Imagings Data: ECG and imaging reviewed - Problems (1) Syncopal episodes Status: Acute Plan: Most likely due to orthostatic hypotension. Carotid arterial duplex shows patent left carotid stent. Recommend close follow-up with vascular surgery, Dr. Nesbitt in [place]. Alcohol cessation strongly recommended. Encourage exercise and compression stockings. Consider abdominal binder. If recent echo was unremarkable, no need to repeat. No significant murmur on exam to suggest aortic stenosis. Follow-up with outpatient cable technician in [place]. Qualifiers: Syncope type: unspecified Qualified Code(s): R55 - Syncope and collapse (2) Atrial fibrillation Status: Chronic Plan: Continue rate control and anticoagulation. Follow-up with cable technician closely. Qualifiers: Atrial fibrillation type: longstanding persistent Qualified Code(s): I48.11 - Longstanding persistent atrial fibrillation (3) Coronary artery disease involving [place] heart without angina pectoris Status: Acute Plan: Patient endorses remote history of PCI in 2009. Denies chest pain. Currently on apixaban for AF and clopidogrel for CAD and recent carotid stenting. Recommend continuing therapy. Anemia workup as per medicine service. (4) Bilateral carotid artery stenosis Status: Acute Plan: As above. Recent left carotid stenting in [place] (Dr. Nesbitt), and plans for right carotid stenting in the near future per the patient. Carotid artery duplex was performed during hospitalization, revealing patent left CCA/ICA stent and elevated PSV's. (5) Orthostatic hypotension Status: Acute Plan: Discussed management in detail with the patient and his son at bedside. Encourage exercise and compression stockings. Ensure adequate oral hydration. Cessation of alcohol strongly recommended. If syncopal episodes persist despite conservative measures and resolution of orthostatic hypotension, recommend tilt table testing and cardiac event monitoring for further evaluation. (6) Alcohol abuse Status: Chronic Plan: Education provided regarding contribution of alcohol to his recurrent syncopal episodes. Patient expressed understanding, but it is unclear if he is ready to quit at this time. Continue to support alcohol cessation efforts. (7) Anemia Status: Acute Plan: Unclear etiology. Denies melena. Defer to medicine/GI for further workup. Conclusions/Impression: Thank you for the consultation. Please call with any questions.
[2025-08-17] MEDS ORDERED: ZOLPIDEM TARTRATE 5 MG TABLET PO SCH (21:00)
== END 2025-08-17 15:24 | disposition home or self-care (01) ==
LOC: ER 15:05 → 4TH 19:16
PROVIDERS: ADMIT Internal Medicine; ATTEND Internal Medicine
DX: I48.11 Longstanding persistent atrial fibrillation (principal); D64.9 Anemia, unspecified; N17.9 Acute kidney failure, unspecified; R42 Dizziness and giddiness; I95.9 Hypotension, unspecified; R55 Syncope and collapse; F10.90 Alcohol use, unspecified, uncomplicated; I25.10 Atherosclerotic heart disease of native coronary artery without angina pectoris; I65.23 Occlusion and stenosis of bilateral carotid arteries; Z79.01 Long term (current) use of anticoagulants
CPT/HCPCS: 96361; 93005; 85025 ×2; 80048; 36415 ×2; 83735; 82947; 84484; 82728; 82607; 83540; 80053; 84425; 84466; 70450; 72125; 71045; 93880; 96360; 99285; J7040; J7030; G0378 ×3